=== PATIENT | female | born 1935 | race Caucasian/White ===

== ENCOUNTER → 2016-09-07 | Outpatient (CLI) | payer MEDICARE, OTHER | LOC: RAD 07:20 | PROVIDERS: ATTEND Physician Assistant Medical | DX: R10.13 Epigastric pain (principal); R11.2 Nausea with vomiting, unspecified; R79.89 Other specified abnormal findings of blood chemistry; K80.20 Calculus of gallbladder without cholecystitis without obstruction | CPT/HCPCS: 76700 ==

== ENCOUNTER → 2016-09-27 | Outpatient (CLI) | payer MEDICARE, OTHER ==
[2016-09-28 06:41] LABS: ALBUMIN 3.3 g/dL (3.4-5.0); ANION GAP 12.9 MEQ/L (3-15); CALCULATED IONIZED CALCIUM 4.1 mg/dL (3.8-4.6); MAGNESIUM* 2.1 mg/dL (1.6-2.3); TOTAL PROTEIN 6.5 g/dL (6.4-8.5)
== END ==
LOC: LAB 13:20
PROVIDERS: ATTEND Internal Medicine Hematology & Oncology
DX: C25.0 Malignant neoplasm of head of pancreas (principal)
CPT/HCPCS: 36415; 80053; 83615; 83735; 84100; 86301

== ENCOUNTER → 2016-09-28 | Outpatient (CLI) | payer MEDICARE, OTHER ==
[2016-09-28 15:27] LABS: MEAN CORPUSCULAR HEMOGLOBIN 29.3 PG (26.0-34.0); MEAN CORPUSCULAR HGB CONC 34.7 g/dL (31.0-37.0); MEAN CORPUSCULAR VOLUME 84 FL (80-100); MEAN PLATELET VOLUME 8.4 FL (6.0-9.5); PLATELET COUNT 412 10^3uL (150-450); WHITE BLOOD COUNT 10.75 10^3uL (4.0-11.0)
[2016-09-28 15:49] LABS: BAND NEUTROPHILS % 0 % (0-6); EOSINOPHILS % 3 % (0-4); LYMPHOCYTES # 4.1 #; MONOCYTES # 0.6 #; MONOCYTES % 6 % (3-11); RBC MORPH NORMAL (NORMAL); SEGMENTED NEUTROPHILS % 53 % (51-67); TOTAL CELLS COUNTED 100
== END ==
LOC: LAB 15:18
PROVIDERS: ATTEND Internal Medicine Hematology & Oncology
DX: C25.0 Malignant neoplasm of head of pancreas (principal)
CPT/HCPCS: 36415; 85007; 85027

== ENCOUNTER 2016-09-30 06:52 | Day surgery (SDC) | payer MEDICARE, OTHER ==
[~2016-09-30] VITALS: Ht 160 cm; Wt 63.2 kg
[2016-09-30] VITALS (7 sets, daily range): BP systolic 102–116; BP diastolic 48–64
[~2016-09-30 06:52] MED LIST: ACETAMINOPHEN 500 MG TAB (TYLENOL) PO SCH; LACTATED RINGERS 1,000 ML IV SCH; SODIUM CHLORIDE FLUSH 10 ML SYR IV PRN; SODIUM CHLORIDE FLUSH 3 ML SYR IV PRN; ceFAZolin 2,000 MG in SODIUM CHLORIDE VIAL (PF) 20 ML IV SCH
[2016-09-30] MEDS ORDERED: LIDOCAINE/EPINEPHRINE 1% 1:100,000 (XYLOCAINE) 30 ML VIAL INJ ONE (07:11)
[2016-09-30] MEDS ORDERED: ROPIVACAINE 0.2% 0 ML ONE (07:11)
[2016-09-30] MEDS ORDERED: SODIUM CHLORIDE FLUSH 20 ML ONE (07:11)
[2016-09-30] MEDS ORDERED: BUPIVACAINE/EPINEPHRINE 0.25%-1:200,000 (MARCAINE) 30 ML VIAL INJ ONE (07:11)
[2016-09-30] MEDS ORDERED: HEPARIN 5000 UNIT/0.5 ML SYRINGE ONE (07:16)
[2016-09-30 07:44] LABS: MEAN CORPUSCULAR HEMOGLOBIN 29.1 PG (26.0-34.0); MEAN CORPUSCULAR HGB CONC 34.5 g/dL (31.0-37.0); MEAN CORPUSCULAR VOLUME 85 FL (80-100); MEAN PLATELET VOLUME 8.3 FL (6.0-9.5); PLATELET COUNT 397 10^3uL (150-450); WHITE BLOOD COUNT 10.54 10^3uL (4.0-11.0)
[2016-09-30 07:46] LABS: BAND NEUTROPHILS % 0 % (0-6); EOSINOPHILS % 0 % (0-4); LYMPHOCYTES # 1.6 #; MONOCYTES # 1.6 #; MONOCYTES % 16 % (3-11); RBC MORPH NORMAL (NORMAL); SEGMENTED NEUTROPHILS % 69 % (51-67); TOTAL CELLS COUNTED 100
[2016-09-30 07:57] LABS: ALBUMIN 3.9 g/dL (3.4-5.0); ANION GAP 14.6 MEQ/L (3-15); CALCULATED IONIZED CALCIUM 3.8 mg/dL (3.8-4.6); TOTAL PROTEIN 7.3 g/dL (6.4-8.5)
[2016-09-30] MEDS ORDERED: PROPOFOL 20 ML IV ONE (08:05)
[2016-09-30] MEDS ORDERED: ceFAZolin 1000 MG (ANCEF) VIAL ONE (08:05)
[2016-09-30] MEDS ORDERED: WATER (STERILE) FOR INJECTION 10 ML VIAL ONE (08:05)
[2016-09-30] MEDS ORDERED: ALFENTANIL 500 MCG/ML (ALFENTA) 5 ML AMP IV ONE (08:05)
[2016-09-30] MEDS ORDERED: MIDAZOLAM 2 MG/2 ML (VERSED) VIAL ONE (08:05)
[2016-09-30] MEDS ORDERED: ONDANSETRON 2 MG/ML (Z0FRAN) 2 ML VIAL IV PRN (09:35)
== END 2016-09-30 12:05 | disposition home or self-care (01) ==
LOC: ASC 06:52
PROVIDERS: ATTEND Surgery
DX: C25.0 Malignant neoplasm of head of pancreas (principal)
CPT/HCPCS: 36415; 36561; 77001; 80053; 85007; 85027; 85610; A9270; C1788; J0690; J1644; J2250; J7120

== ENCOUNTER → 2016-10-04 | Outpatient (CLI) | payer MEDICARE, OTHER | LOC: LAB 10:03 | PROVIDERS: ATTEND Internal Medicine Hematology & Oncology | DX: Z53.9 Procedure and treatment not carried out, unspecified reason (principal) ==

== ENCOUNTER → 2016-10-11 | Outpatient (CLI) | payer MEDICARE, OTHER ==
[2016-10-11 09:42] LABS: MEAN CORPUSCULAR HEMOGLOBIN 29.4 PG (26.0-34.0); MEAN CORPUSCULAR HGB CONC 33.8 g/dL (31.0-37.0); MEAN CORPUSCULAR VOLUME 87 FL (80-100); MEAN PLATELET VOLUME 8.2 FL (6.0-9.5); PLATELET COUNT 108 10^3uL (150-450); WHITE BLOOD COUNT 4.75 10^3uL (4.0-11.0)
[2016-10-11 09:51] LABS: BAND NEUTROPHILS % 0 % (0-6); LYMPHOCYTES # 0.9 #; RBC MORPH NORMAL (NORMAL); SEGMENTED NEUTROPHILS % 80 % (51-67); TOTAL CELLS COUNTED 100
== END ==
LOC: LAB 09:31
PROVIDERS: ATTEND Internal Medicine Hematology & Oncology
DX: C25.0 Malignant neoplasm of head of pancreas (principal)
CPT/HCPCS: 36415; 85007; 85027

== ENCOUNTER 2016-10-18 09:49 | Outpatient (RCR) | payer MEDICARE, OTHER ==
[2016-10-18 09:51] LABS: MEAN CORPUSCULAR HEMOGLOBIN 28.9 PG (26.0-34.0); MEAN CORPUSCULAR HGB CONC 33.4 g/dL (31.0-37.0); MEAN CORPUSCULAR VOLUME 86 FL (80-100); PLATELET COUNT 109 10^3uL (150-450); WHITE BLOOD COUNT 4.49 10^3uL (4.0-11.0)
[2016-10-18 10:00] LABS: EOSINOPHILS % 0 % (0-4); LYMPHOCYTES # 1.1 #; MONOCYTES # 0.4 #; MONOCYTES % 9 % (3-11); RBC MORPH NORMAL (NORMAL)
[2016-10-18 10:01] LABS: BAND NEUTROPHILS % 2 % (0-6); SEGMENTED NEUTROPHILS % 63 % (51-67); TOTAL CELLS COUNTED 100
[2016-10-18 11:22] LABS: ALBUMIN 2.6 g/dL (3.4-5.0); ANION GAP 11.2 MEQ/L (3-15); CALCULATED IONIZED CALCIUM 4.3 mg/dL (3.8-4.6); TOTAL PROTEIN 5.2 g/dL (6.4-8.5)
[2016-11-17] MEDS ORDERED: PANT40TA3 PO (22:20)
[2016-11-17] MEDS ORDERED: METF-473 PO (22:20)
[2016-11-17] MEDS ORDERED: KCL20TCR PO (22:20)
[2016-11-17] MEDS ORDERED: FURO40TA4 PO (22:20)
[2016-11-22] MEDS ORDERED: MGX400T PO (09:36)
[2016-11-22] MEDS ORDERED: KCL20TCR PO (09:36)
[2016-11-30] MEDS ORDERED: DOCU-243 PO (18:39)
[2016-11-30] MEDS ORDERED: FURO80TA84 PO (18:39)
[2016-11-30] MEDS ORDERED: POTA-57 PO (18:42)
[2016-12-03] MEDS ORDERED: AC325T PO (13:12)
[2016-12-03] MEDS ORDERED: FRSM40T PO (13:12)
[2016-12-03] MEDS ORDERED: KCL20TCR PO (13:12)
[2016-12-03] MEDS ORDERED: CEFD300C PO (13:12)
== END 2016-12-08 19:20 | disposition home or self-care (01) ==
LOC: LAB 09:49
PROVIDERS: ATTEND Internal Medicine Hematology & Oncology
DX: C25.0 Malignant neoplasm of head of pancreas (principal)
CPT/HCPCS: 36415; 80053; 83615; 83735; 84100; 85007; 85027; 86301

== ENCOUNTER → 2016-10-19 | Outpatient (CLI) | payer MEDICARE, OTHER ==
[2016-10-19 10:00] LABS: ALBUMIN 2.8 g/dL (3.4-5.0); TOTAL PROTEIN 5.7 g/dL (6.4-8.5)
== END ==
LOC: LAB 09:42
PROVIDERS: ATTEND Internal Medicine
DX: K80.61 Calculus of gallbladder and bile duct with cholecystitis, unspecified, with obstruction (principal)
CPT/HCPCS: 36415; 80076

== ENCOUNTER → 2016-10-25 | Outpatient (REF) | payer MEDICARE, OTHER ==
[2016-10-25 13:52] LABS: MEAN CORPUSCULAR HEMOGLOBIN 29.2 PG (26.0-34.0); MEAN CORPUSCULAR HGB CONC 33.7 g/dL (31.0-37.0); MEAN CORPUSCULAR VOLUME 87 FL (80-100); MEAN PLATELET VOLUME 9.2 FL (6.0-9.5); PLATELET COUNT 154 10^3uL (150-450); WHITE BLOOD COUNT 7.01 10^3uL (4.0-11.0)
[2016-10-25 13:56] LABS: BAND NEUTROPHILS % 6 % (0-6); EOSINOPHILS % 1 % (0-4); MONOCYTES # 1.1 #; MONOCYTES % 15 % (3-11); RBC MORPH NORMAL (NORMAL); SEGMENTED NEUTROPHILS % 49 % (51-67); TOTAL CELLS COUNTED 100
[2016-10-25 14:02] LABS: ALBUMIN 2.2 g/dL (3.4-5.0); ANION GAP 9.5 MEQ/L (3-15); CALCULATED IONIZED CALCIUM 4.3 mg/dL (3.8-4.6); MAGNESIUM* 1.5 mg/dL (1.6-2.3); TOTAL PROTEIN 4.5 g/dL (6.4-8.5)
== END ==
LOC: LAB 13:35
PROVIDERS: ATTEND Internal Medicine Hematology & Oncology
DX: C25.0 Malignant neoplasm of head of pancreas (principal)
CPT/HCPCS: 80053; 83615; 83735; 84100; 85007; 85027

== ENCOUNTER → 2016-10-28 | Outpatient (REF) | payer MEDICARE, OTHER ==
[2016-10-28 10:05] LABS: ANION GAP 10.6 MEQ/L (3-15)
== END ==
LOC: LAB 08:54
PROVIDERS: ATTEND Internal Medicine Hematology & Oncology
DX: R60.0 Localized edema (principal)
CPT/HCPCS: 80048

== ENCOUNTER → 2016-11-01 | Outpatient (REF) | payer MEDICARE, OTHER ==
[2016-11-01 09:01] LABS: MEAN CORPUSCULAR HEMOGLOBIN 28.8 PG (26.0-34.0); MEAN CORPUSCULAR VOLUME 87 FL (80-100); MEAN PLATELET VOLUME 8.9 FL (6.0-9.5); PLATELET COUNT 477 10^3uL (150-450); WHITE BLOOD COUNT 11.97 10^3uL (4.0-11.0)
[2016-11-01 09:38] LABS: BAND NEUTROPHILS % 7 % (0-6); EOSINOPHILS % 1 % (0-4); LYMPHOCYTES # 2.9 #; MONOCYTES # 1.4 #; MONOCYTES % 13 % (3-11); SEGMENTED NEUTROPHILS % 51 % (51-67); TOTAL CELLS COUNTED 100
[2016-11-01 09:42] LABS: RBC MORPH NORMAL (NORMAL)
== END ==
LOC: LAB 08:21
PROVIDERS: ATTEND Internal Medicine Hematology & Oncology
DX: C25.0 Malignant neoplasm of head of pancreas (principal)
CPT/HCPCS: 85007; 85027

== ENCOUNTER → 2016-11-08 | Outpatient (REF) | payer MEDICARE, OTHER ==
[2016-11-08 08:51] LABS: MEAN CORPUSCULAR HEMOGLOBIN 28.7 PG (26.0-34.0); MEAN CORPUSCULAR HGB CONC 32.7 g/dL (31.0-37.0); MEAN CORPUSCULAR VOLUME 88 FL (80-100); MEAN PLATELET VOLUME 8.6 FL (6.0-9.5); PLATELET COUNT 572 10^3uL (150-450); WHITE BLOOD COUNT 12.84 10^3uL (4.0-11.0)
[2016-11-08 09:12] LABS: BAND NEUTROPHILS % 0 % (0-6); EOSINOPHILS % 3 % (0-4); LYMPHOCYTES # 2.1 #; MONOCYTES # 1.2 #; MONOCYTES % 10 % (3-11); RBC MORPH NORMAL (NORMAL); SEGMENTED NEUTROPHILS % 71 % (51-67); TOTAL CELLS COUNTED 100
== END ==
LOC: LAB 08:35
PROVIDERS: ATTEND Internal Medicine Hematology & Oncology
DX: C25.0 Malignant neoplasm of head of pancreas (principal)
CPT/HCPCS: 85007; 85027

== ENCOUNTER → 2016-11-09 | Outpatient (REF) | payer MEDICARE, OTHER ==
[2016-11-09 11:45] LABS: ALBUMIN 2.4 g/dL (3.4-5.0); CALCULATED IONIZED CALCIUM 4.1 mg/dL (3.8-4.6); TOTAL PROTEIN 5.1 g/dL (6.4-8.5)
== END ==
LOC: LAB 11:12
PROVIDERS: ATTEND Internal Medicine Hematology & Oncology
DX: C25.4 Malignant neoplasm of endocrine pancreas (principal); C25.0 Malignant neoplasm of head of pancreas
CPT/HCPCS: 80053

== ENCOUNTER → 2016-11-15 | Outpatient (REF) | payer MEDICARE, OTHER ==
[~2016-11-15] MED LIST changes: -ACETAMINOPHEN 500 MG TAB (TYLENOL) PO SCH; +FURO40TA4 PO; +KCL20TCR PO; -LACTATED RINGERS 1,000 ML IV SCH; +METF-473 PO; +PANT40TA3 PO; -SODIUM CHLORIDE FLUSH 10 ML SYR IV PRN; -SODIUM CHLORIDE FLUSH 3 ML SYR IV PRN; -ceFAZolin 2,000 MG in SODIUM CHLORIDE VIAL (PF) 20 ML IV SCH
[2016-11-15 08:48] LABS: MEAN CORPUSCULAR HEMOGLOBIN 28.7 PG (26.0-34.0); MEAN CORPUSCULAR HGB CONC 32.1 g/dL (31.0-37.0); MEAN CORPUSCULAR VOLUME 89 FL (80-100); PLATELET COUNT 214 10^3uL (150-450); WHITE BLOOD COUNT 10.21 10^3uL (4.0-11.0)
[2016-11-15 09:30] LABS: BAND NEUTROPHILS % 0 % (0-6); EOSINOPHILS % 1 % (0-4); LYMPHOCYTES # 2.5 #; MONOCYTES # 1.3 #; MONOCYTES % 13 % (3-11); RBC MORPH NORMAL (NORMAL); SEGMENTED NEUTROPHILS % 62 % (51-67); TOTAL CELLS COUNTED 100
== END ==
LOC: LAB 08:29
PROVIDERS: ATTEND Internal Medicine Hematology & Oncology
DX: C25.0 Malignant neoplasm of head of pancreas (principal)
CPT/HCPCS: 85007; 85027; 86301

== ENCOUNTER 2016-11-17 21:29 | Inpatient (IN) | payer MEDICARE, OTHER ==
[~2016-11-17] VITALS: Ht 160 cm; Wt 66.0 kg
[2016-11-17] MEDS ORDERED: ACETAMINOPHEN 500 MG TAB (TYLENOL) PO ONE (21:55)
[2016-11-17] MEDS ORDERED: ACETAMINOPHEN 500 MG TAB (TYLENOL) ONE (22:02)
[2016-11-17] MEDS ORDERED: PANT40TA3 PO (22:20)
[2016-11-17] MEDS ORDERED: FURO40TA4 PO (22:20)
[2016-11-17] MEDS ORDERED: KCL20TCR PO (22:20)
[2016-11-17] MEDS ORDERED: METF-473 PO (22:20)
[2016-11-17 22:37] LABS: MEAN CORPUSCULAR HEMOGLOBIN 28.8 PG (26.0-34.0); MEAN CORPUSCULAR HGB CONC 32.5 g/dL (31.0-37.0); MEAN CORPUSCULAR VOLUME 89 FL (80-100); WHITE BLOOD COUNT 15.27 10^3uL (4.0-11.0)
[2016-11-17 22:38] LABS: MEAN PLATELET VOLUME 9.5 FL (6.0-9.5); PLATELET COUNT 186 10^3uL (150-450)
[2016-11-17 22:44] LABS: BAND NEUTROPHILS % 6 % (0-6); LYMPHOCYTES # 0.2 #; RBC MORPH NORMAL (NORMAL); SEGMENTED NEUTROPHILS % 93 % (51-67); TOTAL CELLS COUNTED 100
[2016-11-17 22:47] LABS: ALBUMIN 2.8 g/dL (3.4-5.0); CALCULATED IONIZED CALCIUM 3.7 mg/dL (3.8-4.6); TOTAL PROTEIN 6.1 g/dL (6.4-8.5)
[2016-11-17 22:51] LABS: ANION GAP 10.1 MEQ/L (3-15)
[2016-11-17 23:04] LABS: BILIRUBIN,URINE Negative (Negative); CLARITY,URINE Clear; COLOR,URINE Yellow; GLUCOSE, URINE (UA) Negative (Negative); LEUKOCYTE ESTERASE ,URINE Negative (Negative)
[2016-11-17 23:10] LABS: URINE CENTRIFUGED VOLUME 12 mL
[2016-11-17] MEDS ORDERED: LEVOFLOXACIN 500 MG/100 ML IV 100 ML IV ONE (23:35)
[2016-11-17] MEDS ORDERED: ACETAMINOPHEN 325 MG TAB (TYLENOL) PO PRN (23:50)
[2016-11-17] MEDS ORDERED: DEXTROSE 50% 25 GM/50 ML SYRINGE IV PRN (23:50)
[2016-11-17] MEDS ORDERED: HYDROmorphone 1 MG/ML (DILAUDID) SYRINGE IV PRN (23:50)
[2016-11-17] MEDS ORDERED: GLUCAGON EMERGENCY 1 MG/KIT IM PRN (23:50)
[2016-11-17] MEDS ORDERED: DEXTROSE ORAL GEL (GLUTOSE 40%) 15 GM TUBE PO PRN (23:50)
[2016-11-17] MEDS ORDERED: ONDANSETRON 2 MG/ML (Z0FRAN) 2 ML VIAL IV PRN (23:50)
[2016-11-18] VITALS (17 sets, daily range): BP systolic 90–121; BP diastolic 32–56
--- NOTE | 2016-11-18 00:15 | NUR ---
Pt arrives to 302 via cart from ED. Ambulates with assist to weight chair and bed. Denies pain. Resp even and non labored on RA. 2+ lower extremity edema. See admission assessment for further details.
--- NOTE | 2016-11-18 00:45 | NUR ---
Dr Dorado assesses pt via remote monitoring.
--- NOTE | 2016-11-18 01:11 | History and Physical (E) ---
History & Physical Chief complaint: Chills History of present illness: This is a 81-year-old female that lives independently at home. The patient was in her normal state of health until diagnosed with pancreatic cancer in September of this year. The patient underwent a stent placement presumably of her common bile duct 3 weeks ago. The patient was doing well. Had completed her first round of chemotherapy. The patient had onset of weakness. Increasing somnolence. Patient would fall asleep easily. Subsequently patient had a significant episodes or Reiters. Patient was evaluated by a home health provider. And referred to the emergency department for further assessment. In the emergency department the patients urine demonstrates evidence of infection. Other sources of infection were not identified. The patient is to be admitted for IV fluids and IV antibiotics. Past medical history: Pancreatic cancer, hypertension, prediabetes, polio Past surgical history: IV Port placement, right total hip, right shoulder muscle surgery to prevent chronic dislocation what her polio was activated, elbow surgery, hand surgery Medications: Lasix, Protonix, potassium, metformin Allergies: See medication reconciliation Social history: , lives independently, retired from the [employer], no tobacco, no alcohol Family history: Mother and father with dyslipidemia Review of systems: No headache, no change in vision, no ear pain, no sores in the mouth, no dysphagia, no neck pain, no chest pain, no heart palpitations, no cough, no shortness of breath, no abdominal pain, no nausea or vomiting, patient is dealing with constipation, no urine symptoms, no focal neurological complaints, has persistent edema to legs bilaterally, a 10 point review of systems is otherwise negative except described above Physical examination: Vital signs: Temperature 101.5, pulse 120, blood pressure 80/40, respiratory rate 16 Well-developed well-nourished white female alert and oriented to person place and time and situation mild distress Sclera is not icteric Neck is supple with easy range of motion Heart is regular rate and rhythm no murmur Lungs are diminished without wheezes or rhonchi Abdomen is soft per nursing personnel no evidence of tenderness Extremities significant edema up to the knees bilaterally Neurologically no focal deficits Lab: White count 15.3, hemoglobin 8.1, platelet counts 186,000, 6% bands, urinalysis with mild infection, sodium 129, potassium 4.3, serum bicarbonate 25, BNP 20, creatinine 0.8, glucose is 143, lactic acid 3.1, total bili 1.3 Chest x-ray no acute process Impression/plan 1. Urinary tract infection acute present on admission: Levaquin provided in the emergency department setting, will change to Rocephin, cultures pending, adjust as indicated, IV fluids, 2. Severe sepsis acute present on admission: At this time lactic acid is elevated. Patient has received 30 cc/kg IV fluids, we will cycle lactic acid overnight, repeat sepsis markers in the morning, it is worth noting the patient s blood pressure is low, patient reports that she normally runs low, I will not consider this patients septic shock at this time 3. Pancreatic carcinoma acute present on admission: Patients actively being treated. See oncology notes. Has completed her first round of chemotherapy. Has a stent I presume of the common bile duct. There is no evidence of shock to jaundice at this time. There is no evidence to support a sending cholangitis. 4. Hyponatremia acute present on admission: Secondary to hypovolemia. Normal saline, repeat labs in the morning 5. Normocytic anemia chronic present on admission: At this time related to chemotherapy, no transfusion indicated at this time 6. Type 2 diabetes mellitus chronic present on admission: Patient advocates that she is a prediabetic. Regardless patients sugars elevated. Well utilize a correctional plan. 7. DVT prophylaxis: SCD 8. Gastric prophylaxis: Proton pump inhibitor Allergies/Home Medications Allergies: Coded Allergies: No Known Drug Allergies (Unverified , 10/01/14) Reported Home Medications Scheduled Furosemide (Furosemide) 40 MG PO BID (Reported) Metformin HCl (Metformin HCl ER) 500 MG PO DAILY (Reported) Pantoprazole Sod (Protonix Tab) 40 MG PO DAILY (Reported) Potassium Chloride (Klor-Con M20) 20 MEQ PO DAILY (Reported) Copies to: End of Report . RICHAR DICKERSON MD November 18, 2016 01:11
[2016-11-18] MEDS ORDERED: cefTRIAXone 1 GM (ROCEPHIN) VIAL ONE (04:31)
[2016-11-18] MEDS ORDERED: SODIUM CHLORIDE 50 ML IV ONE (04:31)
[2016-11-18] MEDS ORDERED: cefTRIAXone SODIUM 1,000 MG in SODIUM CHLORIDE 50 ML IV SCH (05:00)
[2016-11-18] MEDS: INSULIN LISPRO 1 UNIT/0.01 ML (HUMALOG) DOSE SC SCH ×4 (06:13→21:00)
[2016-11-18] MEDS: PANTOPRAZOLE 40 MG (PROTONIX) TAB PO SCH (06:15)
--- NOTE | 2016-11-18 06:30 | NUR ---
Pt rests in short intervals. Denies pain. Resp even and non labored on RA. IVF infusing w/o difficulty. Pt up to bathroom with staff assist x1 and cane. No needs at this time.
[2016-11-18 07:19] LABS: MEAN CORPUSCULAR HEMOGLOBIN 29.2 PG (26.0-34.0); MEAN CORPUSCULAR HGB CONC 32.9 g/dL (31.0-37.0); MEAN CORPUSCULAR VOLUME 89 FL (80-100); MEAN PLATELET VOLUME 9.1 FL (6.0-9.5); PLATELET COUNT 156 10^3uL (150-450); WHITE BLOOD COUNT 15.56 10^3uL (4.0-11.0)
[2016-11-18 07:28] LABS: ALBUMIN 2.2 g/dL (3.4-5.0); ANION GAP 10.2 MEQ/L (3-15); CALCULATED IONIZED CALCIUM 3.6 mg/dL (3.8-4.6)
[2016-11-18] MEDS ORDERED: SODIUM CHLORIDE 250 ML IV ONE (07:30)
--- NOTE | 2016-11-18 08:02 | Diagnostic Imaging Report ---
INDICATION: Weakness. EXAM: Portable chest at 7:39 PM FINDINGS: A right IJ Port-A-Cath tip projects over the SVC. The heart size and pulmonary vascularity are normal. The lungs are clear. There are no effusions or pneumothoraces. IMPRESSION: No acute abnormalities in the chest. Dictated by: Dictated on workstation # [id number]
[2016-11-18 08:10] LABS: ANISOCYTOSIS SLIGHT; BAND NEUTROPHILS % 0 % (0-6); EOSINOPHILS % 0 % (0-4); HYPOCHROMASIA MODERATE; LYMPHOCYTES # 1.1 #; MONOCYTES % 0 % (3-11); RBC MORPH SEE REFERENCE (NORMAL); SEGMENTED NEUTROPHILS % 93 % (51-67); TOTAL CELLS COUNTED 100
--- NOTE | 2016-11-18 09:05 | NUR ---
NUTRITION ASSESSMENT Level 1 Patient: Erin Jenkins Age/Sex: 81/F Date Screened: 11-18-16 Weight: 148.2#/67.4 kg Height: 63 inches Primary Diagnosis: UTI, severe sepsis Diet Order: small diabetic Relevant labs: sodium 132, glucose 103, AST 79 Food allergies: N Nutrition Assessment Criteria Age over 80: 4 points Body Mass Index (BMI) under 19: N Admission Screening Indicates Risk? 3 points Moderate/High Risk Diagnosis: 3 points TPN or PPN: N NPO or clear liquid diet: N Serum Glucose <70 or >180: N Hgb A1c >6.7: N/A Total: 10 points Risk Screen: __ Patient at low nutritional risk based on available data; reevaluate in 5-7 days __ Patient at moderate nutritional risk based on available data; reevaluate in 3-5 days _X_ Patient at high nutritional risk; complete Nutrition Assessment within 48 hours of admission.
[2016-11-18] MEDS ORDERED: SODIUM CHLORIDE 250 ML ONE (09:28)
--- NOTE | 2016-11-18 10:20 | NUR ---
Stool sample sent to lab.
--- NOTE | 2016-11-18 10:31 | NUR ---
NUTRITION ASSESSMENT Level II Patient: Erin Jenkins Age/Sex: 81/F Date Assessed: 11-18-16 ASSESSMENT Pertinent History: Patient admitted with UTI and severe sepsis, and screened at high nutritional risk secondary to elderly age and diagnosis. PMHx includes pancreatic cancer (dx September 2016), HTN, prediabetes and polio. She lives alone at home. She has completed her first round of chemo for pancreatic cancer. Weight history includes 139# in September,. Meds/Nutrition: Humalog, Protonix, NS Weight: 148.2#/67.4 kg Height: 63 inches Body Mass Index (BMI): 26.3 [place] Body Weight : 115#/52.2 kg % IBW: 128% GASTROINTESTINAL Appetite: stated fair on admission, no intake reported yet Diet Order: small diabetic Unintentional loss of >10 lbs. in 3 months: N Difficult to chew/swallow: N Diabetes: N Relevant Labs: sodium 132, glucose 103, AST 79 Calculations for Nutritional Assessment Estimated calorie needs: 22-25 kcals/kg = 1,475-1,675 kcals Estimated protein needs: 1.0-1.3 g/kg = 67-87 g./day DIAGNOSIS 1. Nutrition Diagnosis: Potential for inadequate intake related to acute illness and catabolic disease state (cancer) as evidenced by recently dx. pancreatic cancer with sepsis/UTI. NUTRITIONAL INTERVENTION Goal: Patient will receive adequate nutrition to meet her needs. Plan: Will provide small diet as ordered and monitor intake for adequacy. Protein shakes may be helpful if her appetite is poor; will encourage Glucerna if unable to take adequate p.o. nutrition. Will follow closely. MONITORING & EVALUATION _X_ Monitor patients menu selections _X_ Monitor patients food intake per nursing notes __ Monitor NPO/clear liquid days _X_ Monitor lab values __ Monitor I&O __ Other
--- NOTE | 2016-11-18 10:33 | NUR ---
PRBC infusion begins at this time. Will continue to monitor
--- NOTE | 2016-11-18 11:36 | NUR ---
PRBC infusion increased from 125cc/hr to 175cc/hr.
--- NOTE | 2016-11-18 12:33 | NUR ---
PRBC infusion complete at this time
[2016-11-18] MEDS ORDERED: DOCUSATE SODIUM 100 MG (COLACE) CAP PO PRN (12:45)
[2016-11-18] MEDS ORDERED: MAGNESIUM HYDROXIDE 80MG/ML (MILK OF MAGNESIA) 30 ML UDC PO PRN (12:45)
[2016-11-18] MEDS ORDERED: POLYETHYLENE GLYCOL 17 GM (MIRALAX) PACKET PO PRN (12:45)
[2016-11-18] MEDS ORDERED: CALCIUM CARBONATE CHEWABLE 300 MG (TUMS) TABLET PO PRN (12:45)
[2016-11-18] MEDS ORDERED: PROMETHAZINE 25 MG/ML (PHENERGAN) 1 ML VIAL IM PRN (12:45)
--- NOTE | 2016-11-18 13:11 | Progress Note (E) ---
Progress Note SUBJECTIVE Admitted after midnight. 81 year old with pancreatic cancer, diagnosed September 2016. had a biliary stent (?) 3 weeks prior to this admit. Has had first round of chemi. Admitted for concerns of sepsis. UTI present on admit. Given ceftriaxone. Since admit, has remained afebrile. Hgb this AM was quite low at 6.9 so transfusion was ordered. Na had been low on admit at 129, improved to 132. Ca low at 6.9 but corrects to 8.3. On exam, awake, interactive, oriented. Feels better, she says. No longer having rigors. Prior to admit she wasn't having UTI symptoms and has not had problems with UTI in the past. Questions answered... updated her on findings, plan of care. OBJECTIVE Vital Signs Date Time Temp Pulse Resp B/P Pulse Ox O2 Delivery O2 Flow Rate FiO2 11/18/16 12:30 98.6 89 16 92 Room air 11/18/16 11:14 96/40 I & O 11/17/16 11/18/16 Cumulative From/Thru 19:00 07:00 11/17/16 21:45 - 11/18/16 06:10 Intake Total 2549 ml 2549 ml Balance 2549 ml 2549 ml GEN: Awake, interactive, oriented, NAD HEENT: EOMI, clear sclerae, mildly dry oral mucosa. CV: Regular with III/ systolic flow murmur at LSB. PULM: Faint and intermittent basilar rales bilaterally. ABD: Soft, NT/ND with normal bowel sounds. EXTR: 2+ BLE and pedal edema. War, dry, well-perfused. INTEG: Pallor. Age related changes. NEURO: No focal motor neuro deficit. Gait not assessed. Lab-Past 14 Days, 35 Results 11/17/16 22:00: Absolute Band Neutrophils 0.9, Alanine Aminotransferase (ALT/SGPT) 59, Albumin 2.8L, Albumin/Globulin Ratio 0.848L, Alkaline Phosphatase 119, Anion Gap 10.1, Aspartate Amino Transf (AST/SGOT) 96H, BUN/Creatinine Ratio 24H, Band Neutrophils % 6, Blood Morphology Comment Normal, Blood Urea Nitrogen 20H, Calcium Level 7.7L, Calcium/Ionized Calcium Ratio 3.7L, Calculated Osmolality 255L, Carbon Dioxide Level 25, Chloride Level 94L, Creatinine 0.84, Differential Total Cells Counted 100, Estimat Glomerular Filtration Rate 78.9, Estimated GFR (Non- 65.2, Glucose Level 143#H, Hematocrit 24.90L , Hemoglobin 8.1L, Lactic Acid Level 3.1H, Lymphocytes # 0.2, Lymphocytes % ( Manual) 1L, Mean Corpuscular Hemoglobin 28.8, Mean Corpuscular Hemoglobin Concent 32.5, Mean Corpuscular Volume 89, Mean Platelet Volume 9.5, Neutrophils # 14.2, Platelet Count 186, Potassium Level 4.3, Red Blood Count 2.81L, Red Cell Distribution Width 15.3, Segmented Neutrophils % 93H, Sodium Level 129L, Total Bilirubin 1.3#H, Total Protein 6.1L, White Blood Count 15.27H 11/17/16 22:55: Urine Bacteria 3+H, Urine Bilirubin Negative, Urine Blood Trace-intactH, Urine Clarity Clear, Urine Collection Type Clean catch, Urine Color Yellow, Urine Glucose (UA) Negative, Urine Ketones Negative, Urine Leukocyte Esterase Negative , Urine Microscopic RBC 2-5, Urine Nitrite PositiveH, Urine Protein 1+H, Urine Renal Epithelial Cells 5-10, Urine Specific [place] 1.010, Urine Squamous Epithelial Cells 20-50, Urine Urobilinogen 1.0, Urine WBC 2-5, Urine pH 7.0, Volume Urine Centrifuged 12 ml 11/18/16 04:00: Lactic Acid Level 1.2 11/18/16 07:00: Absolute Band Neutrophils 0.0, Alanine Aminotransferase (ALT/SGPT) 53, Albumin 2.2#L, Albumin/Globulin Ratio 0.785L, Alkaline Phosphatase 74, Anion Gap 10.2, Aspartate Amino Transf (AST/SGOT) 79H, BUN/Creatinine Ratio 26H, Band Neutrophils % 0, Blood Morphology Comment See reference, Blood Urea Nitrogen 18 , Calcium Level 6.9*L, Calcium/Ionized Calcium Ratio 3.6L, Calculated Osmolality 257L, Carbon Dioxide Level 25, Chloride Level 101, Creatinine 0.69, Differential Total Cells Counted 100, Estimat Glomerular Filtration Rate 99.1, Estimated GFR (Non- 81.9, Glucose Level 103#, Hematocrit 21.00L , Hemoglobin 6.9*L, Lactic Acid Level 1.0, Lymphocytes # 1.1, Lymphocytes % ( Manual) 7L, Mean Corpuscular Hemoglobin 29.2, Mean Corpuscular Hemoglobin Concent 32.9, Mean Corpuscular Volume 89, Mean Platelet Volume 9.1, Neutrophils # 14.5, Platelet Count 156, Potassium Level 3.9, Red Blood Count 2.36L, Red Cell Distribution Width 15.4, Segmented Neutrophils % 93H, Sodium Level 132L, Total Bilirubin 0.7, Total Protein 5.0L, White Blood Count 15.56H, Anisocytosis Slight, Basophils # (Auto) , Basophils # (Manual) 0.0, Basophils % (Manual) 0, Basophils (%) (Auto) , Eosinophils # 0.0, Eosinophils # (Auto) , Eosinophils % ( Manual) 0, Eosinophils (%) (Auto) , Hypochromasia Moderate, Lipase 27, Lymphocytes # (Auto) , Lymphocytes (%) (Auto) , Metamyelocytes % 0, Monocytes # 0.0, Monocytes # (Auto) , Monocytes % (Manual) 0L, Monocytes (%) (Auto) , Neutrophils # (Auto) , Neutrophils (%) (Auto) 11/18/16 10:20: Stool Occult Blood Negative MICRO 11/18 Urine culture PENDING 11/18 Blood culture PENDING 11/17/16 Chest Xray Portable 1 View A/P INDICATION: Weakness. EXAM: Portable chest at 7:39 PM FINDINGS: A right IJ Port-A-Cath tip projects over the SVC. The heart size and pulmonary vascularity are normal. The lungs are clear. There are no effusions or pneumothoraces. IMPRESSION: No acute abnormalities in the chest. ASSESSMENT Erin Jenkins is a 81 year old female admitted from ED 11/18 with SIRS/ sepsis attributed to UTI. She has pancreatic cancer and is undergoing chemotherapy. She had anemia on admit with Hgb landy 6.9. She has other chronic problems. * SIRS/sepsis: attributed to UTI. * UTI: Cultures pending. Ceftriaxone. * Normocytic Anemia: Stool negative for occult blood. Hgb landy 6.9. Transfused 1 unit PRBC 11/18. Monitor and transfuse for Hgb < 8. * Hyponatremia: Na 129 on admit, improved to 132. Monitor trend. * Pain: Hydromorphone, acetaminophen. * Hypotension: Mild. Treat sepsis. IVF. Monitor trend. * F/E/N: Diabetic diet. Port. IVF. I&O, daily weight. * Prophylaxis: Enoxaparin * Code Status: Full * Dispo: Inpatient, expecting 3 day stay. CHRONIC ISSUES * Diabetes Mellitus Type II: Metformin, sliding scale. * GERD: Pantoprazole * Edema; Hold furosemide, potassium. * Pancreatic Cancer: Obtain records from oncologist. RAMESH HURTADO MD November 18, 2016 12:59
[2016-11-18] MEDS ORDERED: PROMETHAZINE HCL INJ 12.5 MG in SODIUM CHLORIDE 25 ML IV PRN (13:35)
--- NOTE | 2016-11-18 14:30 | NUR ---
TG shapes are placed to BLE. Also a TG shape is placed to Left arm for edema. Dr. Reyes notified.
--- NOTE | 2016-11-18 15:34 | NUR ---
MULTIDISCIPLINARY MTG/DR. HURTADO: Pt. admitted with SIRS/Sepsis due to UTI. Pt. has a permanent biliary stent placed; will monitor for signs of infection. Pt. is already feeling better. Pt. was anemic and received one unit of blood. Pt. expected to be here for at least three days and would benefit from skilled care although Pt. may be reluctant due to living at home and receiving home health services through [facility].
[2016-11-18] MEDS: METFORMIN 500 MG PO SCH (18:05)
--- NOTE | 2016-11-18 18:10 | NUR ---
Pt resting in bed, awaiting supper meal. Denies needs at this time. Family was here this afternoon and Dr. Reyes updated them on plan of care. IV SL this afternoon per orders. Call light within reach.
--- NOTE | 2016-11-18 20:00 | NUR ---
Repositioned in bed. Is alert and oriented. TG shapes remain on bilateral lower extremities, and left arm due to edema. Denies any discomforts at this time. SL intact without complications noted at site. Accu Check 170 mg/dl. Denies pain or nausea. No concerns at present time. Call light within reach.
[2016-11-18 21:32] LABS: IRON 52 ug/dL (50-170); UNBOUND IRON CONTENT 116 ug/dl (126-382)
--- NOTE | 2016-11-19 | NUR ---
Resting quietly in bed. Respirations even and non-labored.
[2016-11-19 04:00] VITALS: BP 138/51
[2016-11-19] MEDS ORDERED: cefTRIAXone 1 GM (ROCEPHIN) VIAL ONE (04:20)
[2016-11-19] MEDS ORDERED: SODIUM CHLORIDE 50 ML IV ONE (04:20)
[2016-11-19] MEDS: cefTRIAXone SODIUM 1,000 MG in SODIUM CHLORIDE 50 ML IV SCH (05:04)
[2016-11-19 05:47] LABS: BASOPHILS % (AUTO) 0 % (0-2); EOSINOPHILS # (AUTO) 0.5 10^3uL; EOSINOPHILS % (AUTO) 4 % (0-4); MEAN CORPUSCULAR HEMOGLOBIN 29.1 PG (26.0-34.0); MEAN CORPUSCULAR HGB CONC 33.2 g/dL (31.0-37.0); MEAN CORPUSCULAR VOLUME 88 FL (80-100); MEAN PLATELET VOLUME 9.5 FL (6.0-9.5); MONOCYTES # (AUTO) 0.1 X10^3; MONOCYTES % (AUTO) 1 % (3-11); NEUTROPHILS # (AUTO) 9.9 X10^3; NEUTROPHILS % (AUTO) 84 % (51-67); PLATELET COUNT 201 10^3uL (150-450); WHITE BLOOD COUNT 11.84 10^3uL (4.0-11.0)
[2016-11-19] MEDS: INSULIN LISPRO 1 UNIT/0.01 ML (HUMALOG) DOSE SC SCH ×4 (06:05→21:00)
[2016-11-19] MEDS: PANTOPRAZOLE 40 MG (PROTONIX) TAB PO SCH (06:14)
[2016-11-19 06:18] LABS: ALBUMIN 2.2 g/dL (3.4-5.0); ANION GAP 10.2 MEQ/L (3-15); CALCULATED IONIZED CALCIUM 3.8 mg/dL (3.8-4.6); MAGNESIUM* 1.8 mg/dL (1.6-2.3); TOTAL PROTEIN 5.3 g/dL (6.4-8.5)
--- NOTE | 2016-11-19 06:47 | NUR ---
Rested well tonight. Up to bathroom with stand by assist. Ambulates slowly. Denies pain or nausea. Wears c-pap at night without difficulty. SL patent without complications to site. No discomforts voiced. Call light within reach.
--- NOTE | 2016-11-19 07:25 | NUR ---
Patient awake in bed upon shift assessment. Alert and oriented X3. Denies pain, nausea, chills, SOA, or other distress. HR RRR. Lung sounds CTAB. Left arm remains edematous. BLE with 1+ pitting edema. Ambulates into bathroom with standby assist and cane, steady gate. Updated on plan of care for shift including antibiotic therapy. Call light in reach.
[2016-11-19 07:38] VITALS: BP 130/61
--- NOTE | 2016-11-19 08:57 | Progress Note (E) ---
Progress Note SUBJECTIVE BP improved. Remained afebrile. Has had a BM. UTI likely source of infection. No evidence to suggest cholangitis. (She has a biliary stent. On exam, awake, resting in bed. No distress. Updated on findings, plan of care. Agreeable to working with PT. OBJECTIVE Vital Signs Date Time Temp Pulse Resp B/P Pulse Ox O2 Delivery O2 Flow Rate FiO2 11/19/16 07:38 97.5 110 16 130/61 92 Room air I & O 11/18/16 11/19/16 Cumulative From/Thru 19:00 07:00 11/17/16 21:45 - 11/19/16 06:00 Intake Total 927 ml 1000 ml 4476 ml Output Total 400 ml 450 ml 850 ml Balance 527 ml 550 ml 3626 ml GEN: Awake, interactive, oriented, NAD HEENT: EOMI, clear sclerae, mildly dry oral mucosa. CV: Regular with III/ systolic flow murmur at LSB. PULM: Faint and intermittent basilar rales bilaterally. ABD: Soft, NT/ND with normal bowel sounds. EXTR: 2+ BLE and pedal edema. Warm, dry, well-perfused. INTEG: Pallor. Age related changes. NEURO: No focal motor neuro deficit. Lab-Past 14 Days, 35 Results 11/17/16 22:00: Absolute Band Neutrophils 0.9, Alanine Aminotransferase (ALT/SGPT) 59, Albumin 2.8L, Albumin/Globulin Ratio 0.848L, Alkaline Phosphatase 119, Anion Gap 10.1, Aspartate Amino Transf (AST/SGOT) 96H, BUN/Creatinine Ratio 24H, Band Neutrophils % 6, Blood Morphology Comment Normal, Blood Urea Nitrogen 20H, Calcium Level 7.7L, Calcium/Ionized Calcium Ratio 3.7L, Calculated Osmolality 255L, Carbon Dioxide Level 25, Chloride Level 94L, Creatinine 0.84, Differential Total Cells Counted 100, Estimat Glomerular Filtration Rate 78.9, Estimated GFR (Non- 65.2, Ferritin 1556H, Glucose Level 143#H, Hematocrit 24.90L, Hemoglobin 8.1L, Iron (send out) 52, Lactic Acid Level 3.1H, Lymphocytes # 0.2, Lymphocytes % (Manual) 1L, Mean Corpuscular Hemoglobin 28.8, Mean Corpuscular Hemoglobin Concent 32.5, Mean Corpuscular Volume 89, Mean Platelet Volume 9.5, Neutrophils # 14.2, Platelet Count 186, Potassium Level 4.3 , Red Blood Count 2.81L, Red Cell Distribution Width 15.3, Segmented Neutrophils % 93H, Sodium Level 129L, Total Bilirubin 1.3#H, Total Iron Binding Capacity 168L, Total Protein 6.1L, Transferrin % Saturation 31, White Blood Count 15.27H 11/17/16 22:55: Urine Bacteria 3+H, Urine Bilirubin Negative, Urine Blood Trace-intactH, Urine Clarity Clear, Urine Collection Type Clean catch, Urine Color Yellow, Urine Glucose (UA) Negative, Urine Ketones Negative, Urine Leukocyte Esterase Negative , Urine Microscopic RBC 2-5, Urine Nitrite PositiveH, Urine Protein 1+H, Urine Renal Epithelial Cells 5-10, Urine Specific [place] 1.010, Urine Squamous Epithelial Cells 20-50, Urine Urobilinogen 1.0, Urine WBC 2-5, Urine pH 7.0, Volume Urine Centrifuged 12 ml 11/18/16 04:00: Lactic Acid Level 1.2 11/18/16 07:00: Absolute Band Neutrophils 0.0, Alanine Aminotransferase (ALT/SGPT) 53, Albumin 2.2#L, Albumin/Globulin Ratio 0.785L, Alkaline Phosphatase 74, Anion Gap 10.2, Aspartate Amino Transf (AST/SGOT) 79H, BUN/Creatinine Ratio 26H, Band Neutrophils % 0, Blood Morphology Comment See reference, Blood Urea Nitrogen 18 , Calcium Level 6.9*L, Calcium/Ionized Calcium Ratio 3.6L, Calculated Osmolality 257L, Carbon Dioxide Level 25, Chloride Level 101, Creatinine 0.69, Differential Total Cells Counted 100, Estimat Glomerular Filtration Rate 99.1, Estimated GFR (Non- 81.9, Glucose Level 103#, Hematocrit 21.00L , Hemoglobin 6.9*L, Lactic Acid Level 1.0, Lymphocytes # 1.1, Lymphocytes % ( Manual) 7L, Mean Corpuscular Hemoglobin 29.2, Mean Corpuscular Hemoglobin Concent 32.9, Mean Corpuscular Volume 89, Mean Platelet Volume 9.1, Neutrophils # 14.5, Platelet Count 156, Potassium Level 3.9, Red Blood Count 2.36L, Red Cell Distribution Width 15.4, Segmented Neutrophils % 93H, Sodium Level 132L, Total Bilirubin 0.7, Total Protein 5.0L, White Blood Count 15.56H, Anisocytosis Slight, Basophils # (Auto) , Basophils # (Manual) 0.0, Basophils % (Manual) 0, Basophils (%) (Auto) , Eosinophils # 0.0, Eosinophils # (Auto) , Eosinophils % ( Manual) 0, Eosinophils (%) (Auto) , Hypochromasia Moderate, Lipase 27, Lymphocytes # (Auto) , Lymphocytes (%) (Auto) , Metamyelocytes % 0, Monocytes # 0.0, Monocytes # (Auto) , Monocytes % (Manual) 0L, Monocytes (%) (Auto) , Neutrophils # (Auto) , Neutrophils (%) (Auto) 11/18/16 10:20: Stool Occult Blood Negative 11/18/16 13:05: Hematocrit 25.30L, Hemoglobin 8.4L 11/19/16 05:15: Hematocrit 25.90L, Hemoglobin 8.6L, Alanine Aminotransferase (ALT/SGPT) 57, Albumin 2.2L, Albumin/Globulin Ratio 0.709L, Alkaline Phosphatase 97, Anion Gap 10.2, Aspartate Amino Transf (AST/SGOT) 70H, BUN/Creatinine Ratio 20, Basophils # (Auto) 0.0, Basophils (%) (Auto) 0, Blood Urea Nitrogen 11, Calcium Level 7.5L , Calcium/Ionized Calcium Ratio 3.8, Calculated Osmolality 257L, Carbon Dioxide Level 24, Chloride Level 103, Creatinine 0.55L, Eosinophils # (Auto) 0.5, Eosinophils (%) (Auto) 4, Estimat Glomerular Filtration Rate 128.7, Estimated GFR (Non- 106.4, Glucose Level 97, Lymphocytes # (Auto) 1.0, Lymphocytes (%) (Auto) 9L, Magnesium Level 1.8, Mean Corpuscular Hemoglobin 29.1 , Mean Corpuscular Hemoglobin Concent 33.2, Mean Corpuscular Volume 88, Mean Platelet Volume 9.5, Monocytes # (Auto) 0.1, Monocytes (%) (Auto) 1L, Neutrophils # (Auto) 9.9, Neutrophils (%) (Auto) 84H, Platelet Count 201, Potassium Level 3.6, Red Blood Count 2.96L, Red Cell Distribution Width 16.1H, Smear Scan Yes, Sodium Level 133L, Total Bilirubin 0.8, Total Protein 5.3L, White Blood Count 11.84H MICRO 11/18 Urine culture Gram negative bacillus 11/18 Blood culture Negative to date 11/17/16 Chest Xray Portable 1 View A/P INDICATION: Weakness. EXAM: Portable chest at 7:39 PM FINDINGS: A right IJ Port-A-Cath tip projects over the SVC. The heart size and pulmonary vascularity are normal. The lungs are clear. There are no effusions or pneumothoraces. IMPRESSION: No acute abnormalities in the chest. ASSESSMENT Erin Jenkins is a 81 year old female admitted from ED 11/18 with SIRS/ sepsis attributed to UTI. She has pancreatic cancer and is undergoing chemotherapy. She had anemia on admit with Hgb landy 6.9. She has other chronic problems. * SIRS/sepsis: attributed to UTI. Blood culture negative. Urine growing gram negative bacillus. * UTI: Due to gram negative bacillus. Cultures pending. Ceftriaxone. * Normocytic Anemia: Stool negative for occult blood. Hgb landy 6.9. Transfused 1 unit PRBC 11/18. Monitor and transfuse for Hgb < 8. * Hyponatremia: Na 129 on admit, improved to 133. Monitor trend. * Pain: Hydromorphone, acetaminophen. * Hypotension: Mild. Resolving. Treated sepsis. Gave IVF. * Deconditioning: PT eval and treat. * F/E/N: Diabetic diet. Port. IVF. I&O, daily weight. * Prophylaxis: Enoxaparin * Code Status: Full * Dispo: Inpatient, expecting 3 day stay. CHRONIC ISSUES * Diabetes Mellitus Type II: Metformin, sliding scale. * GERD: Pantoprazole * Edema; Hold furosemide, potassium. * JACLYN: Home CPAP. * Pancreatic Cancer: Obtain records from oncologist. RAMESH HURTADO MD November 19, 2016 08:47
[2016-11-19 11:17] VITALS: BP 138/65
[2016-11-19 15:28] VITALS: BP 115/42
[2016-11-19] MEDS: METFORMIN 500 MG PO SCH (17:13)
--- NOTE | 2016-11-19 18:04 | NUR ---
Patient ambulates to bathroom with standby assist throughout day shift. Remains afebrile and denies pain. Elevates left arm on two pillows. Pleasant and cooperative with cares. Call light in reach.
[2016-11-19 19:28] VITALS: BP 118/55
--- NOTE | 2016-11-19 20:00 | NUR ---
Resting in bed. Visiting with family. Alert and oriented. Denies any discomforts. SL intact without complications to site. Ambulates to bathroom slowly with cane. Voiding without difficulty. Afebrile. No chills or discomforts. Calls for assistance.
[2016-11-19 23:33] VITALS: BP 110/52
--- NOTE | 2016-11-20 | NUR ---
Repositioned in bed. C-pap on. Tolerates it well. No discomforts voiced.
[2016-11-20 03:46] VITALS: BP 119/55
[2016-11-20] MEDS: cefTRIAXone SODIUM 1,000 MG in SODIUM CHLORIDE 50 ML IV SCH (05:24)
[2016-11-20 05:55] LABS: BASOPHILS % (AUTO) 1 % (0-2); EOSINOPHILS # (AUTO) 0.8 10^3uL; EOSINOPHILS % (AUTO) 11 % (0-4); LYMPHOCYTES # (AUTO) 1.2 X10^3; MEAN CORPUSCULAR HEMOGLOBIN 28.8 PG (26.0-34.0); MEAN CORPUSCULAR HGB CONC 32.7 g/dL (31.0-37.0); MEAN CORPUSCULAR VOLUME 88 FL (80-100); MEAN PLATELET VOLUME 9.1 FL (6.0-9.5); MONOCYTES # (AUTO) 0.3 X10^3; MONOCYTES % (AUTO) 4 % (3-11); NEUTROPHILS # (AUTO) 4.8 X10^3; NEUTROPHILS % (AUTO) 67 % (51-67); PLATELET COUNT 203 10^3uL (150-450); WHITE BLOOD COUNT 7.25 10^3uL (4.0-11.0)
[2016-11-20] MEDS: PANTOPRAZOLE 40 MG (PROTONIX) TAB PO SCH (06:27)
[2016-11-20] MEDS: INSULIN LISPRO 1 UNIT/0.01 ML (HUMALOG) DOSE SC SCH ×4 (06:27→21:00)
--- NOTE | 2016-11-20 06:46 | NUR ---
Patient rested well tonight. Ambulates to the bathroom with stand by assist. Wears Tg's shape to left arm and bilateral lower extremities. No nausea or pain. Tolerates antibiotic well. Pleasant. Still has severe edema in bilateral legs and left arm. No skin breakdown. Heels dry and cracked. No concerns voiced. Call light within reach.
[2016-11-20 08:12] VITALS: BP 139/82
--- NOTE | 2016-11-20 08:20 | NUR ---
Sitting up in chair for breakfast. Alert and pleasant. Asking about getting hair shaved off this morning - states Cpap strap gets caught in hair. Denies pain
--- NOTE | 2016-11-20 08:42 | Progress Note (E) ---
Progress Note SUBJECTIVE Continues to improve. Remains afebrile. Weight up from admit. Has persistent BLE edema. WBC 7.25 now. No bandemia. Hgb stable at 9.3 after just 1 unit transfusion. On exam, legs remain edematous. She also has marked swelling in the left arm. Had polio affecting that arm but the swelling is fairly extensive , down to wrist. Denies pain in that arm. Had no recent IVs in that arm or other trauma, but DVT remains a possibility. Leg edema is chronic and symmetric. Updated her on findings, plan of care. OBJECTIVE Vital Signs Date Time Temp Pulse Resp B/P Pulse Ox O2 Delivery O2 Flow Rate FiO2 11/20/16 03:46 98.6 84 20 119/55 92 Room air I & O 11/19/16 11/20/16 Cumulative From/Thru 19:00 07:00 11/17/16 21:45 - 11/20/16 06:02 Intake Total 770 ml 737 ml 5983 ml Output Total 200 ml 1250 ml 2300 ml Balance 570 ml -513 ml 3683 ml GEN: Awake, interactive, oriented, NAD HEENT: EOMI, clear sclerae, mildly dry oral mucosa. CV: Regular with II/ systolic flow murmur at LSB. PULM: Faint and intermittent basilar rales bilaterally have resolved. ABD: Soft, NT/ND with normal bowel sounds. EXTR: 2+ BLE and pedal edema. Left arm has 3+ edema extending from wrist to shoulder. INTEG: Pallor. Age related changes. 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 Weight: 70.2 kg (64.5 kg on admit) Lab-Past 14 Days, 35 Results 11/17/16 22:00: Absolute Band Neutrophils 0.9, Alanine Aminotransferase (ALT/SGPT) 59, Albumin 2.8L, Albumin/Globulin Ratio 0.848L, Alkaline Phosphatase 119, Anion Gap 10.1, Aspartate Amino Transf (AST/SGOT) 96H, BUN/Creatinine Ratio 24H, Band Neutrophils % 6, Blood Morphology Comment Normal, Blood Urea Nitrogen 20H, Calcium Level 7.7L, Calcium/Ionized Calcium Ratio 3.7L, Calculated Osmolality 255L, Carbon Dioxide Level 25, Chloride Level 94L, Creatinine 0.84, Differential Total Cells Counted 100, Estimat Glomerular Filtration Rate 78.9, Estimated GFR (Non- 65.2, Ferritin 1556H, Glucose Level 143#H, Hematocrit 24.90L, Hemoglobin 8.1L, Iron (send out) 52, Lactic Acid Level 3.1H, Lymphocytes # 0.2, Lymphocytes % (Manual) 1L, Mean Corpuscular Hemoglobin 28.8, Mean Corpuscular Hemoglobin Concent 32.5, Mean Corpuscular Volume 89, Mean Platelet Volume 9.5, Neutrophils # 14.2, Platelet Count 186, Potassium Level 4.3 , Red Blood Count 2.81L, Red Cell Distribution Width 15.3, Segmented Neutrophils % 93H, Sodium Level 129L, Total Bilirubin 1.3#H, Total Iron Binding Capacity 168L, Total Protein 6.1L, Transferrin % Saturation 31, White Blood Count 15.27H 11/17/16 22:55: Urine Bacteria 3+H, Urine Bilirubin Negative, Urine Blood Trace-intactH, Urine Clarity Clear, Urine Collection Type Clean catch, Urine Color Yellow, Urine Glucose (UA) Negative, Urine Ketones Negative, Urine Leukocyte Esterase Negative , Urine Microscopic RBC 2-5, Urine Nitrite PositiveH, Urine Protein 1+H, Urine Renal Epithelial Cells 5-10, Urine Specific [place] 1.010, Urine Squamous Epithelial Cells 20-50, Urine Urobilinogen 1.0, Urine WBC 2-5, Urine pH 7.0, Volume Urine Centrifuged 12 ml 11/18/16 04:00: Lactic Acid Level 1.2 11/18/16 07:00: Absolute Band Neutrophils 0.0, Alanine Aminotransferase (ALT/SGPT) 53, Albumin 2.2#L, Albumin/Globulin Ratio 0.785L, Alkaline Phosphatase 74, Anion Gap 10.2, Aspartate Amino Transf (AST/SGOT) 79H, BUN/Creatinine Ratio 26H, Band Neutrophils % 0, Blood Morphology Comment See reference, Blood Urea Nitrogen 18 , Calcium Level 6.9*L, Calcium/Ionized Calcium Ratio 3.6L, Calculated Osmolality 257L, Carbon Dioxide Level 25, Chloride Level 101, Creatinine 0.69, Differential Total Cells Counted 100, Estimat Glomerular Filtration Rate 99.1, Estimated GFR (Non- 81.9, Glucose Level 103#, Hematocrit 21.00L , Hemoglobin 6.9*L, Lactic Acid Level 1.0, Lymphocytes # 1.1, Lymphocytes % ( Manual) 7L, Mean Corpuscular Hemoglobin 29.2, Mean Corpuscular Hemoglobin Concent 32.9, Mean Corpuscular Volume 89, Mean Platelet Volume 9.1, Neutrophils # 14.5, Platelet Count 156, Potassium Level 3.9, Red Blood Count 2.36L, Red Cell Distribution Width 15.4, Segmented Neutrophils % 93H, Sodium Level 132L, Total Bilirubin 0.7, Total Protein 5.0L, White Blood Count 15.56H, Anisocytosis Slight, Basophils # (Auto) , Basophils # (Manual) 0.0, Basophils % (Manual) 0, Basophils (%) (Auto) , Eosinophils # 0.0, Eosinophils # (Auto) , Eosinophils % ( Manual) 0, Eosinophils (%) (Auto) , Hypochromasia Moderate, Lipase 27, Lymphocytes # (Auto) , Lymphocytes (%) (Auto) , Metamyelocytes % 0, Monocytes # 0.0, Monocytes # (Auto) , Monocytes % (Manual) 0L, Monocytes (%) (Auto) , Neutrophils # (Auto) , Neutrophils (%) (Auto) 11/18/16 10:20: Stool Occult Blood Negative 11/18/16 13:05: Hematocrit 25.30L, Hemoglobin 8.4L 11/19/16 05:15: Hematocrit 25.90L, Hemoglobin 8.6L, Alanine Aminotransferase (ALT/SGPT) 57, Albumin 2.2L, Albumin/Globulin Ratio 0.709L, Alkaline Phosphatase 97, Anion Gap 10.2, Aspartate Amino Transf (AST/SGOT) 70H, BUN/Creatinine Ratio 20, Basophils # (Auto) 0.0, Basophils (%) (Auto) 0, Blood Urea Nitrogen 11, Calcium Level 7.5L , Calcium/Ionized Calcium Ratio 3.8, Calculated Osmolality 257L, Carbon Dioxide Level 24, Chloride Level 103, Creatinine 0.55L, Eosinophils # (Auto) 0.5, Eosinophils (%) (Auto) 4, Estimat Glomerular Filtration Rate 128.7, Estimated GFR (Non- 106.4, Glucose Level 97, Lymphocytes # (Auto) 1.0, Lymphocytes (%) (Auto) 9L, Magnesium Level 1.8, Mean Corpuscular Hemoglobin 29.1 , Mean Corpuscular Hemoglobin Concent 33.2, Mean Corpuscular Volume 88, Mean Platelet Volume 9.5, Monocytes # (Auto) 0.1, Monocytes (%) (Auto) 1L, Neutrophils # (Auto) 9.9, Neutrophils (%) (Auto) 84H, Platelet Count 201, Potassium Level 3.6, Red Blood Count 2.96L, Red Cell Distribution Width 16.1H, Smear Scan Yes, Sodium Level 133L, Total Bilirubin 0.8, Total Protein 5.3L, White Blood Count 11.84H 11/20/16 05:00: Hematocrit 28.40L, Hemoglobin 9.3L, Basophils # (Auto) 0.0, Basophils (%) (Auto ) 1, Eosinophils # (Auto) 0.8, Eosinophils (%) (Auto) 11H, Lymphocytes # (Auto) 1.2, Lymphocytes (%) (Auto) 17L, Mean Corpuscular Hemoglobin 28.8, Mean Corpuscular Hemoglobin Concent 32.7, Mean Corpuscular Volume 88, Mean Platelet Volume 9.1, Monocytes # (Auto) 0.3, Monocytes (%) (Auto) 4, Neutrophils # (Auto ) 4.8, Neutrophils (%) (Auto) 67, Platelet Count 203, Red Blood Count 3.23L, Red Cell Distribution Width 16.4H, White Blood Count 7.25 MICRO 11/18 Blood culture Negative to date SPEC #: [id number] VIGNESH: 11/17/16 STATUS: COMP REQ #: [id number] RECD: 11/17/[address]: MARY FAUSTIN MD Order Location: ED SOURCE: URINE DESCRIPTION: CLEAN CATC Procedure Result Verified URINE CULTURE Final Verified 11/19/16-1922 AM Source: URINE / CLEAN CATCH Order Location: EMERGENCY Site: [facility] Received : 11/18/16 14:35 Order#: [id number] Urine Culture FINAL 11/19/16 19:20 S Escherichia coli >100,000 cfu/ml E. coli Antibiotic NANCY INT Ampicillin >=32 R Ampicillin/sulbactam 8 S Cefazolin <=4 S Ceftriaxone <=1 S Ciprofloxacin >=4 R Gentamicin <=1 S Nitrofurantoin <=16 S Trimethoprim/Sulfa <=20 S S=SUSCEPTIBLE I=INTERMEDIATE R=RESISTANT S-DD= SUSCEPTIBLE, DOSE DEPENDENT IMAGING 11/20/16 LEFT ARM VENOUS DUPLEX: PENDING 11/17/16 Chest Xray Portable 1 View A/P INDICATION: Weakness. EXAM: Portable chest at 7:39 PM FINDINGS: A right IJ Port-A-Cath tip projects over the SVC. The heart size and pulmonary vascularity are normal. The lungs are clear. There are no effusions or pneumothoraces. IMPRESSION: No acute abnormalities in the chest. ASSESSMENT Erin Jenkins is a 81 year old female admitted from ED 11/18 with SIRS/ sepsis attributed to UTI. She has pancreatic cancer and is undergoing chemotherapy. She had anemia on admit with Hgb landy 6.9. She has other chronic problems. * SIRS/sepsis: Resolved. Attributed to UTI. Blood culture negative. Urine growing gram negative bacillus. * UTI due to E coli: Culture as noted. Ceftriaxone x 5 days. * Normocytic Anemia: Stool negative for occult blood. Hgb landy 6.9. Transfused 1 unit PRBC 11/18. Hgb improved to 9.3. Monitored and transfused for Hgb < 8. * Hyponatremia: Na 129 on admit, improved to 133. Monitor trend. * Pain: Stable. Hydromorphone, acetaminophen. * Hypotension: Resolved. Mild on admit, attributed to sepsis. Held furosemide initially. Treated sepsis. Gave IVF. * BLE Edema: Furosemide had been held due to hypotension but restarted 11/20 due to BLE edema. NAHOMI barrera. Daily weight, I&O. 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 Check for DVT with venous duplex. * Deconditioning: PT eval and treat. * F/E/N: Diabetic diet. Port. IVF. I&O, daily weight. * Prophylaxis: Enoxaparin * Code Status: Full * Dispo: Inpatient, expecting 3 day stay. Prepare for discharge to [facility] for skilled care. CHRONIC ISSUES * Diabetes Mellitus Type II: Metformin, sliding scale. * GERD: Pantoprazole * Edema; Hold furosemide, potassium. * JACLYN: Home CPAP. * Pancreatic Cancer: Obtain records from oncologist. RAMESH HURTADO MD November 20, 2016 07:49
[2016-11-20] MEDS: POTASSIUM CHLORIDE ER 20 MEQ TABLET PO SCH (09:30)
[2016-11-20] MEDS: SODIUM CHLORIDE FLUSH 3 ML SYR IV SCH ×2 (09:30→15:22)
[2016-11-20] MEDS: FUROSEMIDE 100 MG/10 ML (LASIX) VIAL IV SCH ×2 (09:30→15:22)
[2016-11-20 12:02] VITALS: BP 102/43
--- NOTE | 2016-11-20 12:18 | Diagnostic Imaging Report ---
EXAM: Left upper extremity venous Doppler ultrasound. DATE: November 20, 2016. INDICATION: 81-year-old female, left arm swelling. COMPARISON: None. FINDINGS: The left internal jugular vein, subclavian vein, and axillary vein are patent. The left brachial vein is patent. The left cephalic vein is patent. The left basilic vein is patent. The left ulnar and radial veins are patent. IMPRESSION: 1. Negative for left upper extremity deep venous thrombosis. Dictated by: Dictated on workstation # [id number]
--- NOTE | 2016-11-20 12:34 | Physical Therapy Evaluation(E) ---
Initial Evaluation Service Date/Time 11/20/16, 12:29 Primary Diagnosis: (1) Sepsis ICD Code: A41.9 (2) UTI (urinary tract infection) ICD Code: N39.0 (3) Pancreatic cancer ICD Code: C25.9 Treatment Diagnosis: (1) Pancreatic cancer ICD Code: C25.9 (2) UTI (urinary tract infection) ICD Code: N39.0 (3) Sepsis ICD Code: A41.9 Onset Date: 11/18/2016 Start of Care Date: November 20, 2016 Resuscitation Status: Full Code Precaution/Isolation: Standard Precautions Fall Level: Low Risk 25-50 Initial Assessment Reason for Rehab: Increase Mobility, Increase Strength, Increase Balance, Increase Transfers, Increase Endurance Medical History: Cancer, Hypertension, Post Polio Syndrome, Other Pain Location/Comment Patient denies pain. Prior Level of Function The patient was living independently. Had completed a course of long-term facility rehab in October. Ambulates with cane. Comment Patient had doppler of LUE and reports they did not find a blood clot. Distance Walked in Feet Patient fatigued when PT saw her secondary to being on diuretic and having to get up and down out of chair frequently to use commode. Patient ambulated to shower this AM also. She was agreeable to sitting activity. ROM/Strength Hip Mobility: Right Hip Strength: 3 Left Hip Strength: 3 Knee Flexion Mobility: Right Knee Flexion Strength: 3 Left Knee Flexion Strength: 3 Knee Extension Mobility: Right Knee Extension Strength: 3 Left Knee Extension Strength: 3 Ankle Mobility: Right Ankle Strength: 3 Left Ankle Strength: 3 Assessment/Goals Initial Transfer Assessment Rolling: Not Assessed/NA Sit-Supine: Not Assessed/NA Sitting Edge of Bed: Modified [place] (sitting in chair) Sit-Stand from Bed: Minimal Assistance (assist of 1 per patient report) Stand-Sit: Minimal Assistance (assist of one per patient report) Ambulation: Not Assessed/NA Coding Time In: 1156 Time Out: 1215 Total Minutes: 21 Charges: 25942 Eval< 20 min RIVERA FRANKLIN PT November 20, 2016 12:34
[2016-11-20 15:32] VITALS: BP 123/57
[2016-11-20] MEDS: METFORMIN 500 MG PO SCH (17:36)
--- NOTE | 2016-11-20 18:00 | NUR ---
Up in chair much of day with legs elevated. T-G shapes on legs bilaterally. Left hand up on pillow most of day. Swelling much less after hand up. Venous study done of left arm - tech stated result was negative for clots. Has denied pain. Alert and oriented.
[2016-11-20 20:03] VITALS: BP 112/48
--- NOTE | 2016-11-20 22:00 | NUR ---
Patient rested in the recliner most of the day with legs elevated. Did void numerous times due to Lasix that she was given. Left arm edema and bilateral lower extremity edema decreasing. Tg shapes removed for the night due to request. Ambulates to bathroom with stand by assist and uses cane. Does well. Denies pain or nausea. No concerns or discomforts voiced at this time. C-pap placed on for the night.
[2016-11-21] VITALS (7 sets, daily range): BP systolic 100–128; BP diastolic 43–60
[2016-11-21] MEDS: INSULIN LISPRO 1 UNIT/0.01 ML (HUMALOG) DOSE SC SCH ×4 (06:04→20:45)
[2016-11-21] MEDS: cefTRIAXone SODIUM 1,000 MG in SODIUM CHLORIDE 50 ML IV SCH (06:05)
[2016-11-21] MEDS: PANTOPRAZOLE 40 MG (PROTONIX) TAB PO SCH (06:11)
[2016-11-21 06:41] LABS: ANION GAP 9.9 MEQ/L (3-15); MAGNESIUM* 1.7 mg/dL (1.6-2.3)
--- NOTE | 2016-11-21 07:47 | NUR ---
Rested well during the night. Was only up to the restroom twice to void. Tolerates IV antibiotic without difficulty. Keeps left arm elevated on pillow. Comfortable this morning without any concerns. Call light within reach.
--- NOTE | 2016-11-21 08:01 | NUR ---
Sitting up in bed to eat breakfast. States slept very well. Swelling much better in bilateral legs and left arm. Left arm remains up on pillow. T-G shapes off at this time. Denies pain.
[2016-11-21] MEDS: FUROSEMIDE 100 MG/10 ML (LASIX) VIAL IV SCH (08:53)
[2016-11-21] MEDS: SODIUM CHLORIDE FLUSH 3 ML SYR IV SCH (08:53)
[2016-11-21] MEDS: POTASSIUM CHLORIDE ER 20 MEQ TABLET PO SCH ×2 (08:53→17:16)
--- NOTE | 2016-11-21 11:22 | Progress Note (E) ---
Progress Note SUBJECTIVE Overnight, no new issues. Vitals stable. Chemistry stable. Left arm sono was negative for DVT. Excellent diuresis with furosemide. Weight has come down. Continuing IV furosemide BID for 2 more doses (this afternoon, then in AM) but then can probably switch to PO. OBJECTIVE Vital Signs Date Time Temp Pulse Resp B/P Pulse Ox O2 Delivery O2 Flow Rate FiO2 11/21/16 07:32 97.2 85 18 128/51 94 Room air 0.00 I & O 11/20/16 11/21/16 Cumulative From/Thru 19:00 07:00 11/17/16 21:45 - 11/21/16 06:37 Intake Total 537 ml 700 ml 7220 ml Output Total 1150 ml 3425 ml 6875 ml Balance -613 ml -2725 ml 345 ml GEN: Awake, interactive, oriented, NAD HEENT: EOMI, clear sclerae, mildly dry oral mucosa. CV: Regular with II/ systolic flow murmur at LSB. PULM: Faint and intermittent basilar rales bilaterally have resolved. ABD: Soft, NT/ND with normal bowel sounds. EXTR: 2+ BLE and pedal edema. Left arm had 3+ edema but this has improved with furosemide. INTEG: Pallor. Age related changes. 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 Weight: 67.7 kg (64.5 kg on admit) Lab-Past 14 Days, 35 Results 11/17/16 22:00: Absolute Band Neutrophils 0.9, Alanine Aminotransferase (ALT/SGPT) 59, Albumin 2.8L, Albumin/Globulin Ratio 0.848L, Alkaline Phosphatase 119, Anion Gap 10.1, Aspartate Amino Transf (AST/SGOT) 96H, BUN/Creatinine Ratio 24H, Band Neutrophils % 6, Blood Morphology Comment Normal, Blood Urea Nitrogen 20H, Calcium Level 7.7L, Calcium/Ionized Calcium Ratio 3.7L, Calculated Osmolality 255L, Carbon Dioxide Level 25, Chloride Level 94L, Creatinine 0.84, Differential Total Cells Counted 100, Estimat Glomerular Filtration Rate 78.9, Estimated GFR (Non- 65.2, Ferritin 1556H, Glucose Level 143#H, Hematocrit 24.90L, Hemoglobin 8.1L, Iron (send out) 52, Lactic Acid Level 3.1H, Lymphocytes # 0.2, Lymphocytes % (Manual) 1L, Mean Corpuscular Hemoglobin 28.8, Mean Corpuscular Hemoglobin Concent 32.5, Mean Corpuscular Volume 89, Mean Platelet Volume 9.5, Neutrophils # 14.2, Platelet Count 186, Potassium Level 4.3 , Red Blood Count 2.81L, Red Cell Distribution Width 15.3, Segmented Neutrophils % 93H, Sodium Level 129L, Total Bilirubin 1.3#H, Total Iron Binding Capacity 168L, Total Protein 6.1L, Transferrin % Saturation 31, White Blood Count 15.27H 11/17/16 22:55: Urine Bacteria 3+H, Urine Bilirubin Negative, Urine Blood Trace-intactH, Urine Clarity Clear, Urine Collection Type Clean catch, Urine Color Yellow, Urine Glucose (UA) Negative, Urine Ketones Negative, Urine Leukocyte Esterase Negative , Urine Microscopic RBC 2-5, Urine Nitrite PositiveH, Urine Protein 1+H, Urine Renal Epithelial Cells 5-10, Urine Specific [place] 1.010, Urine Squamous Epithelial Cells 20-50, Urine Urobilinogen 1.0, Urine WBC 2-5, Urine pH 7.0, Volume Urine Centrifuged 12 ml 11/18/16 04:00: Lactic Acid Level 1.2 11/18/16 07:00: Absolute Band Neutrophils 0.0, Alanine Aminotransferase (ALT/SGPT) 53, Albumin 2.2#L, Albumin/Globulin Ratio 0.785L, Alkaline Phosphatase 74, Anion Gap 10.2, Aspartate Amino Transf (AST/SGOT) 79H, BUN/Creatinine Ratio 26H, Band Neutrophils % 0, Blood Morphology Comment See reference, Blood Urea Nitrogen 18 , Calcium Level 6.9*L, Calcium/Ionized Calcium Ratio 3.6L, Calculated Osmolality 257L, Carbon Dioxide Level 25, Chloride Level 101, Creatinine 0.69, Differential Total Cells Counted 100, Estimat Glomerular Filtration Rate 99.1, Estimated GFR (Non- 81.9, Glucose Level 103#, Hematocrit 21.00L , Hemoglobin 6.9*L, Lactic Acid Level 1.0, Lymphocytes # 1.1, Lymphocytes % ( Manual) 7L, Mean Corpuscular Hemoglobin 29.2, Mean Corpuscular Hemoglobin Concent 32.9, Mean Corpuscular Volume 89, Mean Platelet Volume 9.1, Neutrophils # 14.5, Platelet Count 156, Potassium Level 3.9, Red Blood Count 2.36L, Red Cell Distribution Width 15.4, Segmented Neutrophils % 93H, Sodium Level 132L, Total Bilirubin 0.7, Total Protein 5.0L, White Blood Count 15.56H, Anisocytosis Slight, Basophils # (Auto) , Basophils # (Manual) 0.0, Basophils % (Manual) 0, Basophils (%) (Auto) , Eosinophils # 0.0, Eosinophils # (Auto) , Eosinophils % ( Manual) 0, Eosinophils (%) (Auto) , Hypochromasia Moderate, Lipase 27, Lymphocytes # (Auto) , Lymphocytes (%) (Auto) , Metamyelocytes % 0, Monocytes # 0.0, Monocytes # (Auto) , Monocytes % (Manual) 0L, Monocytes (%) (Auto) , Neutrophils # (Auto) , Neutrophils (%) (Auto) 11/18/16 10:20: Stool Occult Blood Negative 11/18/16 13:05: Hematocrit 25.30L, Hemoglobin 8.4L 11/19/16 05:15: Hematocrit 25.90L, Hemoglobin 8.6L, Alanine Aminotransferase (ALT/SGPT) 57, Albumin 2.2L, Albumin/Globulin Ratio 0.709L, Alkaline Phosphatase 97, Anion Gap 10.2, Aspartate Amino Transf (AST/SGOT) 70H, BUN/Creatinine Ratio 20, Basophils # (Auto) 0.0, Basophils (%) (Auto) 0, Blood Urea Nitrogen 11, Calcium Level 7.5L , Calcium/Ionized Calcium Ratio 3.8, Calculated Osmolality 257L, Carbon Dioxide Level 24, Chloride Level 103, Creatinine 0.55L, Eosinophils # (Auto) 0.5, Eosinophils (%) (Auto) 4, Estimat Glomerular Filtration Rate 128.7, Estimated GFR (Non- 106.4, Glucose Level 97, Lymphocytes # (Auto) 1.0, Lymphocytes (%) (Auto) 9L, Magnesium Level 1.8, Mean Corpuscular Hemoglobin 29.1 , Mean Corpuscular Hemoglobin Concent 33.2, Mean Corpuscular Volume 88, Mean Platelet Volume 9.5, Monocytes # (Auto) 0.1, Monocytes (%) (Auto) 1L, Neutrophils # (Auto) 9.9, Neutrophils (%) (Auto) 84H, Platelet Count 201, Potassium Level 3.6, Red Blood Count 2.96L, Red Cell Distribution Width 16.1H, Smear Scan Yes, Sodium Level 133L, Total Bilirubin 0.8, Total Protein 5.3L, White Blood Count 11.84H 11/20/16 05:00: Hematocrit 28.40L, Hemoglobin 9.3L, Basophils # (Auto) 0.0, Basophils (%) (Auto ) 1, Eosinophils # (Auto) 0.8, Eosinophils (%) (Auto) 11H, Lymphocytes # (Auto) 1.2, Lymphocytes (%) (Auto) 17L, Mean Corpuscular Hemoglobin 28.8, Mean Corpuscular Hemoglobin Concent 32.7, Mean Corpuscular Volume 88, Mean Platelet Volume 9.1, Monocytes # (Auto) 0.3, Monocytes (%) (Auto) 4, Neutrophils # (Auto ) 4.8, Neutrophils (%) (Auto) 67, Platelet Count 203, Red Blood Count 3.23L, Red Cell Distribution Width 16.4H, White Blood Count 7.25 11/21/16 05:00: Albumin 2.0L, Anion Gap 9.9, Blood Urea Nitrogen 13, Calcium Level 7.7L, Carbon Dioxide Level 27, Chloride Level 101, Creatinine 0.70, Estimat Glomerular Filtration Rate 97.4, Estimated GFR (Non- 80.5, Glucose Level 102, Magnesium Level 1.7, Phosphorus Level 3.1, Potassium Level 3.5, Sodium Level 135 MICRO 11/18 Blood culture Negative to date SPEC #: [id number] VIGNESH: 11/17/16 STATUS: COMP REQ #: [id number] RECD: 11/17/[address]: MARY FAUSTIN MD Order Location: ED SOURCE: URINE DESCRIPTION: CLEAN CATC Procedure Result Verified URINE CULTURE Final Verified 11/19/16-1922 AM Source: URINE / CLEAN CATCH Order Location: EMERGENCY Site: [facility] Received : 11/18/16 14:35 Order#: [id number] Urine Culture FINAL 11/19/16 19:20 S Escherichia coli >100,000 cfu/ml E. coli Antibiotic NANCY INT Ampicillin >=32 R Ampicillin/sulbactam 8 S Cefazolin <=4 S Ceftriaxone <=1 S Ciprofloxacin >=4 R Gentamicin <=1 S Nitrofurantoin <=16 S Trimethoprim/Sulfa <=20 S S=SUSCEPTIBLE I=INTERMEDIATE R=RESISTANT S-DD= SUSCEPTIBLE, DOSE DEPENDENT IMAGING 11/20/16 US-VENOUS STUDY EXT LT EXAM: Left upper extremity venous Doppler ultrasound. DATE: November 20, 2016. INDICATION: 81-year-old female, left arm swelling. COMPARISON: None. FINDINGS: The left internal jugular vein, subclavian vein, and axillary vein are patent. The left brachial vein is patent. The left cephalic vein is patent. The left basilic vein is patent. The left ulnar and radial veins are patent. IMPRESSION: 1. Negative for left upper extremity deep venous thrombosis. 11/17/16 Chest Xray Portable 1 View A/P INDICATION: Weakness. EXAM: Portable chest at 7:39 PM FINDINGS: A right IJ Port-A-Cath tip projects over the SVC. The heart size and pulmonary vascularity are normal. The lungs are clear. There are no effusions or pneumothoraces. IMPRESSION: No acute abnormalities in the chest. ASSESSMENT Erin Jenkins is a 81 year old female admitted from ED 11/18 with SIRS/ sepsis attributed to UTI due to E coli. She has pancreatic cancer and is undergoing chemotherapy. She had anemia on admit with Hgb landy 6.9. She has other chronic problems. * SIRS/sepsis: Resolved. Attributed to UTI. Blood culture negative. Urine growing gram negative bacillus. * UTI due to E coli: Culture as noted. Ceftriaxone x 5 days. * Normocytic Anemia: Stool negative for occult blood. Hgb landy 6.9. Transfused 1 unit PRBC 11/18. Hgb improved to 9.3. Monitored and transfused for Hgb < 8. * Hyponatremia: Na 129 on admit, improved to 135. Monitor trend. * Pain: Stable. Hydromorphone, acetaminophen. * Hypotension: Resolved. Mild on admit, attributed to sepsis. Held furosemide initially. Treated sepsis. Gave IVF. * BLE Edema: Furosemide had been held due to hypotension but restarted 11/20 due to BLE edema. Can probably transition to oral furosemide 11/22. NAHOMI hose. Daily weight, I&O. 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 Sono negative for DVT. Diuresis. Compression hose. * Deconditioning: PT eval and treat. * F/E/N: Diabetic diet. Port. IVF. I&O, daily weight. * Prophylaxis: Enoxaparin * Code Status: Full * Dispo: Inpatient, expecting 3 day stay. Prepare for discharge to [facility] for skilled care. CHRONIC ISSUES * Diabetes Mellitus Type II: Metformin, sliding scale. * GERD: Pantoprazole * Edema: Furosemide, potassium. * JACLYN: Home CPAP. * Pancreatic Cancer: Reviewed records from oncologist. Locally advanced, unresectable cancer in the pancreatic head. T2 N1 M0. On gemcitabine and paclitaxel (Abraxane). RAMESH HURTADO MD November 21, 2016 11:09
[2016-11-21] MEDS: MAGNESIUM OXIDE 400 MG (MAG-OX) TAB PO SCH (12:11)
[2016-11-21] MEDS: METFORMIN 500 MG PO SCH (18:11)
--- NOTE | 2016-11-21 18:15 | NUR ---
Up in chair all afternoon. Denies discomfort. Family visited much of afternoon. Alert and oriented. Resp. even and unlabored. Voided frequently after dose of Lasix this morning. T-G shapes off of left arm and legs at this time. States edema mostly gone and nearly back to baseline.
[2016-11-22 03:58] VITALS: BP 121/53
[2016-11-22] MEDS: cefTRIAXone SODIUM 1,000 MG in SODIUM CHLORIDE 50 ML IV SCH (05:27)
--- NOTE | 2016-11-22 05:36 | NUR ---
IV site lost. Dr Castillo notified; okay to access right port a cath.
--- NOTE | 2016-11-22 06:03 | NUR ---
Power port accessed per sterile technique. 20g 1 inch needle utilized. Good blood return. Pt tolerates well. Denies pain. Resp even and non labored on RA.
[2016-11-22] MEDS: PANTOPRAZOLE 40 MG (PROTONIX) TAB PO SCH (06:08)
[2016-11-22 06:12] LABS: MEAN CORPUSCULAR HEMOGLOBIN 28.9 PG (26.0-34.0); MEAN CORPUSCULAR HGB CONC 32.8 g/dL (31.0-37.0); MEAN CORPUSCULAR VOLUME 88 FL (80-100); PLATELET COUNT 177 10^3uL (150-450); WHITE BLOOD COUNT 10.22 10^3uL (4.0-11.0)
[2016-11-22 06:20] LABS: BAND NEUTROPHILS % 4 % (0-6); EOSINOPHILS % 5 % (0-4); LYMPHOCYTES # 3.2 #; MONOCYTES # 0.5 #; MONOCYTES % 5 % (3-11); RBC MORPH NORMAL (NORMAL); SEGMENTED NEUTROPHILS % 55 % (51-67); TOTAL CELLS COUNTED 100
[2016-11-22] MEDS: INSULIN LISPRO 1 UNIT/0.01 ML (HUMALOG) DOSE SC SCH ×2 (06:28→11:30)
[2016-11-22 06:40] LABS: ALBUMIN 2.3 g/dL (3.4-5.0); ANION GAP 9.6 MEQ/L (3-15)
--- NOTE | 2016-11-22 07:25 | NUR ---
Patient sitting at edge of bed upon shift assessment. Alert and oriented X3. Denies pain or distress. Respirations even and non-labored on roomair. Left arm noted to have trace pitting edema. BLE with trace pitting edema. Updated on plan of care for shift. Call light in reach.
[2016-11-22 08:08] VITALS: BP 120/68
[2016-11-22] MEDS: MAGNESIUM OXIDE 400 MG (MAG-OX) TAB PO SCH (08:29)
[2016-11-22] MEDS: POTASSIUM CHLORIDE ER 20 MEQ TABLET PO SCH (08:29)
[2016-11-22] MEDS ORDERED: KCL20TCR PO (09:36)
[2016-11-22] MEDS ORDERED: MGX400T PO (09:36)
--- NOTE | 2016-11-22 09:39 | Discharge Instructions (E) ---
Discharge Instructions Instructions Continue same medications as before Contact your doctor for questions or concerns You will be going to [facility] for shelter Activity Instructions as tolerates Doctor's Appointment Appt with Dr Payton November 23 at 4 pm Discharge Diet: Carbohydrate controlled Ann Marie Bacon APRN November 22, 2016 09:39
--- NOTE | 2016-11-22 09:45 | Discharge Summary (E FT) ---
Discharge Summary (E FT) Admit Date November 17, 2016 at 23:45 Discharge Date Nov 22 2016 Admitting Provider Yosef Dorado MD Primary Care Provider Tammy Clarke MD Attending Provider Yosef Dorado MD Consulting Provider Hospital Course Summary History of present illness: This is a 81-year-old female that lives independently at home. The patient was in her normal state of health until diagnosed with pancreatic cancer in September of this year. The patient underwent a stent placement presumably of her common bile duct 3 weeks ago. The patient was doing well. Had completed her first round of chemotherapy. The patient had onset of weakness. Increasing somnolence. Patient would fall asleep easily. Subsequently patient had a significant episodes or Reiters. Patient was evaluated by a home health provider. And referred to the emergency department for further assessment. In the emergency department the patients urine demonstrates evidence of infection. Other sources of infection were not identified. The patient is to be admitted for IV fluids and IV antibiotics. She is having a good morning- will get up to shower. Ate well for breakfast- Denies any new issues or complaints- Ready for [facility] Vital Signs Date Time Temp Pulse Resp B/P Pulse Ox O2 Delivery O2 Flow Rate FiO2 11/22/16 08:08 96.2 101 20 120/68 96 Room air 11/21/16 15:23 0.00 GEN: Awake, interactive, oriented, NAD HEENT: EOMI, clear sclerae, mildly dry oral mucosa. CV: Regular with II/ systolic flow murmur at LSB. PULM: Lungs clear bilaterally ABD: Soft, NT/ND with normal bowel sounds. EXTR: 2+ BLE and pedal edema. Left arm had 3+ edema but this has improved with furosemide. INTEG: Pallor. Age related changes. 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 Weight: 67.7 kg (64.5 kg on admit) Lab-Past 14 Days, 35 Results 11/17/16 22:00: Absolute Band Neutrophils 0.9, Alanine Aminotransferase (ALT/SGPT) 59, Albumin 2.8L, Albumin/Globulin Ratio 0.848L, Alkaline Phosphatase 119, Anion Gap 10.1, Aspartate Amino Transf (AST/SGOT) 96H, BUN/Creatinine Ratio 24H, Band Neutrophils % 6, Blood Morphology Comment Normal, Blood Urea Nitrogen 20H, Calcium Level 7.7L, Calcium/Ionized Calcium Ratio 3.7L, Calculated Osmolality 255L, Carbon Dioxide Level 25, Chloride Level 94L, Creatinine 0.84, Differential Total Cells Counted 100, Estimat Glomerular Filtration Rate 78.9, Estimated GFR (Non- 65.2, Ferritin 1556H, Glucose Level 143#H, Hematocrit 24.90L, Hemoglobin 8.1L, Iron (send out) 52, Lactic Acid Level 3.1H, Lymphocytes # 0.2, Lymphocytes % (Manual) 1L, Mean Corpuscular Hemoglobin 28.8, Mean Corpuscular Hemoglobin Concent 32.5, Mean Corpuscular Volume 89, Mean Platelet Volume 9.5, Neutrophils # 14.2, Platelet Count 186, Potassium Level 4.3 , Red Blood Count 2.81L, Red Cell Distribution Width 15.3, Segmented Neutrophils % 93H, Sodium Level 129L, Total Bilirubin 1.3#H, Total Iron Binding Capacity 168L, Total Protein 6.1L, Transferrin % Saturation 31, White Blood Count 15.27H 11/17/16 22:55: Urine Bacteria 3+H, Urine Bilirubin Negative, Urine Blood Trace-intactH, Urine Clarity Clear, Urine Collection Type Clean catch, Urine Color Yellow, Urine Glucose (UA) Negative, Urine Ketones Negative, Urine Leukocyte Esterase Negative , Urine Microscopic RBC 2-5, Urine Nitrite PositiveH, Urine Protein 1+H, Urine Renal Epithelial Cells 5-10, Urine Specific [place] 1.010, Urine Squamous Epithelial Cells 20-50, Urine Urobilinogen 1.0, Urine WBC 2-5, Urine pH 7.0, Volume Urine Centrifuged 12 ml 11/18/16 04:00: Lactic Acid Level 1.2 11/18/16 07:00: Absolute Band Neutrophils 0.0, Alanine Aminotransferase (ALT/SGPT) 53, Albumin 2.2#L, Albumin/Globulin Ratio 0.785L, Alkaline Phosphatase 74, Anion Gap 10.2, Aspartate Amino Transf (AST/SGOT) 79H, BUN/Creatinine Ratio 26H, Band Neutrophils % 0, Blood Morphology Comment See reference, Blood Urea Nitrogen 18 , Calcium Level 6.9*L, Calcium/Ionized Calcium Ratio 3.6L, Calculated Osmolality 257L, Carbon Dioxide Level 25, Chloride Level 101, Creatinine 0.69, Differential Total Cells Counted 100, Estimat Glomerular Filtration Rate 99.1, Estimated GFR (Non- 81.9, Glucose Level 103#, Hematocrit 21.00L , Hemoglobin 6.9*L, Lactic Acid Level 1.0, Lymphocytes # 1.1, Lymphocytes % ( Manual) 7L, Mean Corpuscular Hemoglobin 29.2, Mean Corpuscular Hemoglobin Concent 32.9, Mean Corpuscular Volume 89, Mean Platelet Volume 9.1, Neutrophils # 14.5, Platelet Count 156, Potassium Level 3.9, Red Blood Count 2.36L, Red Cell Distribution Width 15.4, Segmented Neutrophils % 93H, Sodium Level 132L, Total Bilirubin 0.7, Total Protein 5.0L, White Blood Count 15.56H, Anisocytosis Slight, Basophils # (Auto) , Basophils # (Manual) 0.0, Basophils % (Manual) 0, Basophils (%) (Auto) , Eosinophils # 0.0, Eosinophils # (Auto) , Eosinophils % ( Manual) 0, Eosinophils (%) (Auto) , Hypochromasia Moderate, Lipase 27, Lymphocytes # (Auto) , Lymphocytes (%) (Auto) , Metamyelocytes % 0, Monocytes # 0.0, Monocytes # (Auto) , Monocytes % (Manual) 0L, Monocytes (%) (Auto) , Neutrophils # (Auto) , Neutrophils (%) (Auto) 11/18/16 10:20: Stool Occult Blood Negative 11/18/16 13:05: Hematocrit 25.30L, Hemoglobin 8.4L 11/19/16 05:15: Hematocrit 25.90L, Hemoglobin 8.6L, Alanine Aminotransferase (ALT/SGPT) 57, Albumin 2.2L, Albumin/Globulin Ratio 0.709L, Alkaline Phosphatase 97, Anion Gap 10.2, Aspartate Amino Transf (AST/SGOT) 70H, BUN/Creatinine Ratio 20, Basophils # (Auto) 0.0, Basophils (%) (Auto) 0, Blood Urea Nitrogen 11, Calcium Level 7.5L , Calcium/Ionized Calcium Ratio 3.8, Calculated Osmolality 257L, Carbon Dioxide Level 24, Chloride Level 103, Creatinine 0.55L, Eosinophils # (Auto) 0.5, Eosinophils (%) (Auto) 4, Estimat Glomerular Filtration Rate 128.7, Estimated GFR (Non- 106.4, Glucose Level 97, Lymphocytes # (Auto) 1.0, Lymphocytes (%) (Auto) 9L, Magnesium Level 1.8, Mean Corpuscular Hemoglobin 29.1 , Mean Corpuscular Hemoglobin Concent 33.2, Mean Corpuscular Volume 88, Mean Platelet Volume 9.5, Monocytes # (Auto) 0.1, Monocytes (%) (Auto) 1L, Neutrophils # (Auto) 9.9, Neutrophils (%) (Auto) 84H, Platelet Count 201, Potassium Level 3.6, Red Blood Count 2.96L, Red Cell Distribution Width 16.1H, Smear Scan Yes, Sodium Level 133L, Total Bilirubin 0.8, Total Protein 5.3L, White Blood Count 11.84H 11/20/16 05:00: Hematocrit 28.40L, Hemoglobin 9.3L, Basophils # (Auto) 0.0, Basophils (%) (Auto ) 1, Eosinophils # (Auto) 0.8, Eosinophils (%) (Auto) 11H, Lymphocytes # (Auto) 1.2, Lymphocytes (%) (Auto) 17L, Mean Corpuscular Hemoglobin 28.8, Mean Corpuscular Hemoglobin Concent 32.7, Mean Corpuscular Volume 88, Mean Platelet Volume 9.1, Monocytes # (Auto) 0.3, Monocytes (%) (Auto) 4, Neutrophils # (Auto ) 4.8, Neutrophils (%) (Auto) 67, Platelet Count 203, Red Blood Count 3.23L, Red Cell Distribution Width 16.4H, White Blood Count 7.25 11/21/16 05:00: Albumin 2.0L, Anion Gap 9.9, Blood Urea Nitrogen 13, Calcium Level 7.7L, Carbon Dioxide Level 27, Chloride Level 101, Creatinine 0.70, Estimat Glomerular Filtration Rate 97.4, Estimated GFR (Non- 80.5, Glucose Level 102, Magnesium Level 1.7, Phosphorus Level 3.1, Potassium Level 3.5, Sodium Level 135 Laboratory Results Past 24 Hrs 11/22/16 05:30: Absolute Band Neutrophils 0.4, Albumin 2.3, Anion Gap 9.6, Band Neutrophils % 4 , Basophils # (Auto) , Basophils # (Manual) 0.0, Basophils % (Manual) 0, Basophils (%) (Auto) , Blood Morphology Comment Normal, Blood Urea Nitrogen 15, C-Reactive Protein 5.40, Calcium Level 8.1, Carbon Dioxide Level 28, Chloride Level 100, Creatinine 0.69, Differential Total Cells Counted 100, Eosinophils # 0.5, Eosinophils # (Auto) , Eosinophils % (Manual) 5, Eosinophils (%) (Auto) , Estimat Glomerular Filtration Rate 99.1, Estimated GFR (Non- 81.9, Glucose Level 101, Hematocrit 28.70, Hemoglobin 9.4, Lymphocytes # 3.2, Lymphocytes # (Auto) , Lymphocytes % (Manual) 31, Lymphocytes (%) (Auto) , Mean Corpuscular Hemoglobin 28.9, Mean Corpuscular Hemoglobin Concent 32.8, Mean Corpuscular Volume 88, Mean Platelet Volume 9.0, Metamyelocytes % 0, Monocytes # 0.5, Monocytes # (Auto) , Monocytes % (Manual) 5, Monocytes (%) (Auto) , Neutrophils # 5.6, Neutrophils # (Auto) , Neutrophils (%) (Auto) , Phosphorus Level 3.6, Platelet Count 177, Potassium Level 4.0, Red Blood Count 3.25, Red Cell Distribution Width 16.4, Segmented Neutrophils % 55, Sodium Level 134, White Blood Count 10.22 MICRO 11/18 Blood culture Negative to date SPEC #: [id number] VIGNESH: 11/17/16 STATUS: COMP REQ #: [id number] RECD: 11/17/[address]: MARY FAUSTIN MD Order Location: ED SOURCE: URINE DESCRIPTION: CLEAN CATC Procedure Result Verified URINE CULTURE Final Verified 11/19/16-1922 AM Source: URINE / CLEAN CATCH Order Location: EMERGENCY Site: [facility] Received : 11/18/16 14:35 Order#: [id number] Urine Culture FINAL 11/19/16 19:20 S Escherichia coli >100,000 cfu/ml E. coli Antibiotic NANCY INT Ampicillin >=32 R Ampicillin/sulbactam 8 S Cefazolin <=4 S Ceftriaxone <=1 S Ciprofloxacin >=4 R Gentamicin <=1 S Nitrofurantoin <=16 S Trimethoprim/Sulfa <=20 S S=SUSCEPTIBLE I=INTERMEDIATE R=RESISTANT S-DD= SUSCEPTIBLE, DOSE DEPENDENT IMAGING 11/20/16 US-VENOUS STUDY EXT LT EXAM: Left upper extremity venous Doppler ultrasound. DATE: November 20, 2016. INDICATION: 81-year-old female, left arm swelling. COMPARISON: None. FINDINGS: The left internal jugular vein, subclavian vein, and axillary vein are patent. The left brachial vein is patent. The left cephalic vein is patent. The left basilic vein is patent. The left ulnar and radial veins are patent. IMPRESSION: 1. Negative for left upper extremity deep venous thrombosis. 11/17/16 Chest Xray Portable 1 View A/P INDICATION: Weakness. EXAM: Portable chest at 7:39 PM FINDINGS: A right IJ Port-A-Cath tip projects over the SVC. The heart size and pulmonary vascularity are normal. The lungs are clear. There are no effusions or pneumothoraces. IMPRESSION: No acute abnormalities in the chest. ASSESSMENT Erin Jenkins is a 81 year old female admitted from ED 11/18 with SIRS/ sepsis attributed to UTI due to E coli. She has pancreatic cancer and is undergoing chemotherapy. She had anemia on admit with Hgb landy 6.9. She has other chronic problems. * SIRS/sepsis: Resolved. Attributed to UTI. Blood culture negative. Ecoli in urine treated with 5 days Rocephin IV * UTI due to E coli: Culture as noted. Ceftriaxone x 5 days. * Normocytic Anemia: Stool negative for occult blood. Hgb landy 6.9. Transfused 1 unit PRBC 11/18. Hgb improved to 9.3. Monitored and transfused for Hgb < 8. * Hyponatremia: Na 129 on admit, improved to 135. * Pain: Stable. Hydromorphone, acetaminophen. * Hypotension: Resolved. * BLE Edema: Furosemide had been held due to hypotension but restarted 11/20 due to BLE edema. Can probably transition to oral furosemide 11/22. NAHOMI hose. Daily weight, I&O. 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 Sono negative for DVT. Diuresis. Compression hose. * Deconditioning: PT eval and treat. * F/E/N: Diabetic diet. Port. IVF. I&O, daily weight. * Prophylaxis: Enoxaparin * Code Status: Full * Dispo: Discharge to [facility] senior care. Appt Tomorrow Dr Payton 4 pm-- she is off of chemo this week. CHRONIC ISSUES * Diabetes Mellitus Type II: Metformin * GERD: Pantoprazole * Edema: Furosemide, potassium. * JACLYN: Home CPAP. * Pancreatic Cancer: Reviewed records from oncologist. Locally advanced, unresectable cancer in the pancreatic head. T2 N1 M0. On gemcitabine and paclitaxel (Abraxane). Discharge Disposition [facility] Skilled Appt Dr Payton Tomorrow TuesdayNovember 23 at 4 pm New Medications: Magnesium Oxide (Magnesium Oxide) 400 Mg Tablet 400 MG PO DAILY #30 TAB Potassium Chloride (Klor-Con M20) 20 Meq Tab.er.prt 20 MEQ PO BID@08,17 #60 TAB Continued Medications: Furosemide (Furosemide) 40 Mg Tablet 40 MG PO BID TAB Metformin HCl (Metformin HCl ER) 500 Mg Tab.er.24 500 MG PO DAILY TAB Pantoprazole Sod (Protonix Tab) 40 Mg Tab 40 MG PO DAILY TAB Discontinued Medications: Potassium Chloride (Klor-Con M20) 20 Meq Tab.er.prt 20 MEQ PO DAILY TAB.SA Follow up Instructions Continue same medications as before Contact your doctor for questions or concerns You will be going to [facility] senior care Copies to: End of Report . Ann Marie Bacon VARNISHING UNIT TOOL SETTER November 22, 2016 09:45
[2016-11-22 11:50] VITALS: BP 131/52
--- NOTE | 2016-11-22 12:26 | NUR ---
Pt. has been accepted to [facility] skilled care. Pt. will go to [phone]/ext. [phone]. 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
--- NOTE | 2016-11-22 13:08 | NUR ---
Discharge order received. Report called to BECK Mejía at [place] [id number].
[2016-11-22] MEDS ORDERED: SODIUM CHLORIDE FLUSH 10 ML ONE (13:26)
--- NOTE | 2016-11-22 14:27 | NUR ---
Dismissed to [facility] per w/c [facility] Kalyn community assistant. Skin w/p/d. A/O x 4. Resp unlabored.
== END 2016-11-22 14:27 | DRG 872 ==
LOC: ED 21:30 → MED/SURG 23:45
PROVIDERS: ADMIT Emergency Medicine; ATTEND Emergency Medicine
DX: A41.9 Sepsis, unspecified organism (principal); N39.0 Urinary tract infection, site not specified; E87.1 Hypo-osmolality and hyponatremia; C25.0 Malignant neoplasm of head of pancreas; D64.81 Anemia due to antineoplastic chemotherapy; I89.0 Lymphedema, not elsewhere classified; E11.9 Type 2 diabetes mellitus without complications; I10 Essential (primary) hypertension; B91 Sequelae of poliomyelitis; T45.1X5A Adverse effect of antineoplastic and immunosuppressive drugs, initial encounter; Z79.899 Other long term (current) drug therapy; Z79.84 Long term (current) use of oral hypoglycemic drugs
CPT/HCPCS: 36415; 36430; 71010; 80053; 80069; 81003; 81015; 82728; 83540; 83550; 83605; 83690; 83735; 85007; 85014; 85018; 85025; 85027; 86140; 86850; 86900; 86901; 86920; 87040; 87077; 87088; 87186; 96374; 99283

== ENCOUNTER 2016-11-30 17:57 | Inpatient (IN) | payer MEDICARE, OTHER ==
[~2016-11-30] VITALS: Ht 160 cm; Wt 64.8 kg
[~2016-11-30 17:57] MED LIST changes: +MGX400T PO
[2016-11-30] MEDS ORDERED: DOCU-243 PO (18:39)
[2016-11-30] MEDS ORDERED: FURO80TA84 PO (18:39)
[2016-11-30] MEDS ORDERED: POTA-57 PO (18:42)
--- NOTE | 2016-11-30 18:54 | NUR ---
Report given to Ernestine SOLARES.
[2016-11-30 19:17] LABS: MEAN CORPUSCULAR VOLUME 91 FL (80-100); PLATELET COUNT 607 10^3uL (150-450); WHITE BLOOD COUNT 17.57 10^3uL (4.0-11.0)
[2016-11-30] MEDS ORDERED: ACETAMINOPHEN 500 MG TAB (TYLENOL) PO ONE (19:20)
--- NOTE | 2016-11-30 19:20 | NUR ---
Temp checked 100.[address] Oliveira notified.
[2016-11-30 19:23] LABS: BILIRUBIN,URINE Negative (Negative); CLARITY,URINE Clear; COLOR,URINE Yellow; GLUCOSE, URINE (UA) Negative (Negative); LEUKOCYTE ESTERASE ,URINE Negative (Negative); PH,URINE 8.5 (5.0 - 8.0); UROBILINOGEN,URINE 0.2 mg/dL (0.2-1.0)
[2016-11-30 19:25] LABS: ALBUMIN 3.4 g/dL (3.4-5.0); ANION GAP 14.2 MEQ/L (3-15); CALCULATED IONIZED CALCIUM 3.7 mg/dL (3.8-4.6)
[2016-11-30 19:37] LABS: BAND NEUTROPHILS % 0 % (0-6); EOSINOPHILS % 0 % (0-4); LYMPHOCYTES # 1.9 #; MONOCYTES # 2.7 #; MONOCYTES % 16 % (3-11); RBC MORPH NORMAL (NORMAL); SEGMENTED NEUTROPHILS % 73 % (51-67); TOTAL CELLS COUNTED 100
--- NOTE | 2016-11-30 19:37 | Diagnostic Imaging Report ---
INDICATION: Weakness. DISCUSSION: Single portable upright view of the chest was obtained, comparison 11/17/2016. Patchy opacity is now present within the medial right upper lobe, pneumonia versus artifact from overlying rib and clavicle. Recommend clinical correlation and continued follow-up. Right chest wall Vhyyga-Y-Szee is stable. Stable normal heart size. IMPRESSION: 1. Patchy opacity is present within the medial right upper lobe as discussed above, possible new pneumonia. Dictated by: Dictated on workstation # [id number]
[2016-11-30] MEDS ORDERED: VANCOMYCIN 1,000 MG in SODIUM CHLORIDE 250 ML IV ONE (19:40)
[2016-11-30] MEDS ORDERED: PIPERACILLIN/TAZOBACTAM 3.375 GM in SODIUM CHLORIDE 50 ML IV ONE (19:40)
[2016-11-30] MEDS ORDERED: POLYETHYLENE GLYCOL 17 GM (MIRALAX) PACKET PO PRN (20:20)
[2016-11-30] MEDS ORDERED: ONDANSETRON 2 MG/ML (Z0FRAN) 2 ML VIAL IV PRN (20:20)
[2016-11-30] MEDS ORDERED: ONDANSETRON 4 MG (ZOFRAN) ORAL DISSOLVE TAB PO PRN (20:20)
[2016-11-30] MEDS ORDERED: LEVOFLOXACIN 750 MG/150 ML IV 150 ML IV SCH (20:30)
[2016-11-30 20:42] VITALS: BP 147/57
[2016-11-30 20:45] VITALS: BP 147/57
--- NOTE | 2016-11-30 20:45 | NUR ---
Patient admitted to room from ED. Son with patient. Alert and oriented. Very weak. Assisted to the bathroom and almost fell. Has left arm weakness due to polio as a child and is very weak due to illness. IV infusing via port right upper chest. No complications to site. Denies pain or any discomforts. Call light within reach. Orders obtained from Dr Grayson. Patient was able to talk to via teledoc. All questions answered. Call light within reach.
--- NOTE | 2016-11-30 21:18 | History and Physical (E) ---
History & Physical PCP: Tammy Clarke MD Please note that the patient was seen via telemedicine with nursing assistance CC tired HPI Mr. Jenkins is a pleasant 81yo woman with h/o DJD s/p R LIANNE, DM2 (she says prediabetic), JACLYN on CPAP, and new diagnosis this year of pancreatic cancer with biliary stent and chemotherapy started and markers improved per her and son at the bedside. She was admitted and DC's 8 days ago to [facility] after UTI/sepsis admission. She felt fine until today with weakness, sleepy, and anorexia. Denies shortness of breath, pain, or cough. No prior PNA. Had completed prior abx and denies other ENT or GI symptoms. No other med changes. PMH As in HPI with polio neuropathy as well PSH As in HPI ALLERGIES: Please see list at end of report. HOME MEDICATIONS: Please see list at end of report. FH father of ?panc cancer at 82yo as was on certificate but would not allow surgery, mother CAD SH no tobacco, etoh, drugs. ROS 10+ systems reviewed and negative except for in HPI and below. CONSTITUTION: 25# weight loss this year. HEENT: No change in vision or hearing. No sores in mouth, sore throat. CV: No chest pain, palpitations. PULM: No cough, shortness of breath, difficulty breathing. GI: No upset stomach, nausea, vomiting, constipation, or diarrhea. No blood in stool. : No dysuria. No blood in urine. MS: No new muscle or joint aches and pains. NEURO: chronic hand pain/tingling. INTEG: No rashes, lesions, or sores. ENDO: No heat or cold intolerance. No polydipsia or polyuria. HEME/LYMPH: No easy bruising or bleeding. No swollen glands. PSYCH: No change in mood or behavior. OBJECTIVE 99.2 P 109 RR 18 97/73 and 96% RA GEN: Awake, alert, oriented, NAD HEENT: EOMI, PERRL, moist oral mucosa. CV: RRR S1 S2 normal with no murmur LUNGS: Decreased R compared to L with no wheezing or rhonchi ABD: Soft, NT/ND with normal bowel sounds INTEG: No rash. NEURO: No focal motor neuro deficit. Weight: 62.6 kg LABS WBC 17.6 Hgb 10.7 similar to before platelts 607 BMP normal except Na133 and glucose 142. LFTS ok lactate 1.8 MICRO IMAGING CXR RML infiltrated ASSESSMENT HCAP PLAN 1. HCAP with possible sepsis as P over 90 and WBC over 12K with L shift--admit to full inpatient care status with Zosyn, Levaquin, Vanco once, nebs, prn O2, IS and supportive care. Cxs as well with temp monitoring. Cautious fluid with the below and euvolemic with a liter in ED already, give once more with wt 62kg for goal of 30ml/kg. 2. Pancreating cancer immunosuppressed undergoing chemo with positive initial response. Full code confirmed again this admit. 3. JACLYN on CPAP 4. Hyponatremia with recent increased water and diuretic with 1+ LE edema. 1L NS and recheck in AM. 5. DM2 with cancer induced weight loss. Check A1C with CBGs. 6. Anemia due to malignancy, and reactive thrombocytosis Full code Allergies/Home Medications Allergies: Coded Allergies: No Known Drug Allergies (Unverified , 10/01/14) Reported Home Medications Scheduled Furosemide (Lasix) 80 MG PO DAILY IN AM (Reported) Magnesium Oxide (Magnesium Oxide) 400 MG PO DAILY Metformin HCl (Metformin HCl ER) 500 MG PO DAILY (Reported) Pantoprazole Sod (Protonix Tab) 40 MG PO DAILY (Reported) Potassium Chloride (Potassium Chloride) 20 MEQ PO BID (Reported) Scheduled PRN Docusate Sodium (Colace) 100 MG PO BID PRN PRN PRN CONSTIPATION (Reported) Discontinued Medications Furosemide (Furosemide) 40 MG PO BID (Reported) Discontinued Reason: Dose changed Potassium Chloride (Klor-Con M20) 20 MEQ PO BID@08,17 Discontinued Reason: Therapy changed Copies to: End of Report . SHARMAINE GUERRERO MD November 30, 2016 21:18
[2016-11-30] MEDS ORDERED: VANCOMYCIN 1000 MG VIAL ONE (22:04)
[2016-11-30] MEDS ORDERED: SODIUM CHLORIDE 250 ML ONE (22:04)
[2016-11-30] MEDS: ALBUTEROL/IPRATROPIUM 3MG-0.5MG/3ML (DUONEB) NEB VIAL INH SCH (23:00)
--- NOTE | 2016-12-01 | NUR ---
Awakened for vitals. C-pap placed on at HS. Patient tolerates well. Assisted to commode with one. Patient remains very weak. No cough. Remains alert and oriented. Denies any discomforts. Call light within reach.
[2016-12-01 00:25] VITALS: BP 102/37
[2016-12-01] MEDS: ALBUTEROL/IPRATROPIUM 3MG-0.5MG/3ML (DUONEB) NEB VIAL INH SCH ×4 (01:30→22:40)
[2016-12-01] MEDS ORDERED: SODIUM CHLORIDE 100 ML ONE (04:27)
[2016-12-01] MEDS ORDERED: PIPERACILLIN/TAZOBACTAM 4.5 GM (ZOSYN) VIAL IV ONE (04:27)
[2016-12-01] MEDS: PIPERACILLIN/TAZOBACTAM 4.5 GM in SODIUM CHLORIDE 100 ML IV SCH ×3 (05:50→22:31)
[2016-12-01 06:02] LABS: MEAN CORPUSCULAR HEMOGLOBIN 29.5 PG (26.0-34.0); MEAN CORPUSCULAR HGB CONC 32.4 g/dL (31.0-37.0); MEAN CORPUSCULAR VOLUME 91 FL (80-100); PLATELET COUNT 571 10^3uL (150-450); WHITE BLOOD COUNT 21.55 10^3uL (4.0-11.0)
[2016-12-01 06:22] LABS: ANION GAP 8.4 MEQ/L (3-15)
--- NOTE | 2016-12-01 06:39 | NUR ---
Patient rested at long intervals tonight. Up to commode to void twice tonight. Remains weak, but feels a little better. Color pale. No respiratory distress.Pleasant and cooperative with cares. No complications at port site. Iv antibiotics administered as ordered. Call light within reach.
[2016-12-01 06:51] LABS: ANISOCYTOSIS SLIGHT; BAND NEUTROPHILS % 3 % (0-6); EOSINOPHILS % 0 % (0-4); LYMPHOCYTES # 1.5 #; MONOCYTES # 3.2 #; MONOCYTES % 15 % (3-11); RBC MORPH SEE REFERENCE (NORMAL); SEGMENTED NEUTROPHILS % 75 % (51-67); TOTAL CELLS COUNTED 100
--- NOTE | 2016-12-01 07:30 | NUR ---
SpO2 95% on Room Air. BS clear
[2016-12-01 08:00] VITALS: BP 122/43
--- NOTE | 2016-12-01 08:30 | NUR ---
Pt alert/oriented, feels weak. Rested throughout noc. Zosyn infusing as ordered as well as NS @100ml/hr per orders in Rt PAC. Pt calls for assist appropriately.
--- NOTE | 2016-12-01 09:07 | NUR ---
MED REC COMPLETE--current med list obtained from list provided by [facility].
[2016-12-01] MEDS: PANTOPRAZOLE 40 MG (PROTONIX) TAB PO SCH (09:19)
--- NOTE | 2016-12-01 10:39 | NUR ---
NUTRITION ASSESSMENT Level 1 Patient: Erin Jenkins Age/Sex: 81/F Date Screened: 12-01-16 Weight: 138.6#/63 kg Height: 63 inches Primary Diagnosis: pneumonia Diet Order: medium diabetic Relevant labs: sodium 132, glucose 123, Hgb A1c 5.8 Food allergies: N Nutrition Assessment Criteria Age over 80: 4 points Body Mass Index (BMI) under 19: N Admission Screening Indicates Risk? 6 points Moderate/High Risk Diagnosis: 3 points TPN or PPN: N NPO or clear liquid diet: N Serum Glucose <70 or >180: N Hgb A1c >6.7: N Total: 13 points Risk Screen: __ Patient at low nutritional risk based on available data; reevaluate in 5-7 days __ Patient at moderate nutritional risk based on available data; reevaluate in 3-5 days _X_ Patient at high nutritional risk; complete Nutrition Assessment within 48 hours of admission.
--- NOTE | 2016-12-01 11:14 | NUR ---
NUTRITION ASSESSMENT Level II Patient: Erin Jenkins Age/Sex: 81/F Date Assessed: 12-01-16 ASSESSMENT Pertinent History: Patient admitted with pneumonia and screened at high nutritional risk secondary to unintentional weight loss with pancreatic cancer. PMHx includes pancreatic cancer diagnosed September 2016, prediabetes, HTN and polio. Prior to last admission (earlier this month) she was living alone at home, but has been at the [facility] since DC 8 days ago. Weight hx. includes 139# in September 2016, 148.2# 11-18-16 and 145.2# 11-22-16. She has lost ~25# this year, and has gone through one round of chemo. Meds/Nutrition: Protonix, NS Weight: 138.6#/63 kg Height: 63 inches Body Mass Index (BMI): 24.6 [place] Body Weight : 115#/52.2 kg % IBW: 120% GASTROINTESTINAL Appetite: poor, eating 25% Diet Order: medium diabetic Unintentional loss of >10 lbs. in 3 months: N Difficult to chew/swallow: N Diabetes: N Relevant Labs: sodium 132, glucose 123, Hgb A1c 5.8 Calculations for Nutritional Assessment Estimated calorie needs: 25-28 kcals/kg = 1,575-1,760 kcals Estimated protein needs: 1.2-1.4 g/kg = 75-88 g./day DIAGNOSIS 1. Nutrition Diagnosis: Inadequate intake related to anorexia as evidenced by reports of decreased appetite with pancreatic cancer/chemo and weight loss over the past few months. NUTRITIONAL INTERVENTION Goal: Patient will receive adequate nutrition to meet her needs. Plan: Recommend upgrading diet to regular instead of diabetic; pt. does not have a diabetic diagnosis, her A1c is WNL, and right now the nutritional priority needs to be increasing the appeal of food so that pt. is able to eat enough. Consider Glucerna or homemade protein shakes to increase kcals/protein while appetite remains poor. Will monitor intake for adequacy and adjust nutritional interventions as needed. MONITORING & EVALUATION _X_ Monitor patients menu selections _X_ Monitor patients food intake per nursing notes __ Monitor NPO/clear liquid days __ Monitor lab values __ Monitor I&O __ Other
[2016-12-01] MEDS ORDERED: VANCOMYCIN PHARMACY PROTOCOL IV SCH ×2 (11:20)
[2016-12-01] MEDS ORDERED: DEXTROSE 50% 25 GM/50 ML SYRINGE IV PRN (11:20)
[2016-12-01] MEDS ORDERED: DEXTROSE ORAL GEL (GLUTOSE 40%) 15 GM TUBE PO PRN (11:20)
[2016-12-01] MEDS ORDERED: GLUCAGON EMERGENCY 1 MG/KIT IM PRN (11:20)
[2016-12-01] MEDS: INSULIN LISPRO 1 UNIT/0.01 ML (HUMALOG) DOSE SC SCH ×3 (11:30→20:58)
--- NOTE | 2016-12-01 11:39 | Progress Note (E) ---
Progress Note SUBJECTIVE Admitted before midnight. Presented to ED with feeling more fatigued, chilled, and fever. CXR changes concerning for HCAP. Had been here in early November, treated for UTI, then to [facility] for skilled care. She was admitted from there. WBC in ED was 17.6. CXR showed patchiness in RUL, a new change compared to 11/17/2016. Broad-spectrum antibiotics were started for HCAP. Since admit, no further fever but was 100.9 in ED. WBC indigo further. On room air. Feels a bit better today. Discussed her findings and plan of care. OBJECTIVE Vital Signs Date Time Temp Pulse Resp B/P Pulse Ox O2 Delivery O2 Flow Rate FiO2 12/01/16 08:00 98.5 94 18 122/43 99 Room air 11/30/16 20:45 0.00 I & O 11/30/16 12/01/16 Cumulative From/Thru 19:00 07:00 11/30/16 18:03 - 12/01/16 05:27 Intake Total 400 ml 400 ml Output Total 450 ml 450 ml Balance -50 ml -50 ml GEN: Awake, interactive, oriented, NAD HEENT: EOMI, clear sclerae, mildly dry oral mucosa. CV: Regular with II/ systolic flow murmur at LSB. PULM: No audible rales/rhonchi, or wheezes. ABD: Soft, NT/ND with normal bowel sounds. EXTR: 2+ BLE and pedal edema. Left arm has 2+ edema, chronic. INTEG: Pallor. Age related changes. 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 Weight: 63 kg (62.6 kg on admit) Lab-Past 14 Days, 35 Results 11/30/16 18:35: Urine Bilirubin Negative, Urine Blood Negative, Urine Clarity Clear, Urine Collection Type Catheter, Urine Color Yellow, Urine Glucose (UA) Negative, Urine Ketones Negative, Urine Leukocyte Esterase Negative, Urine Nitrite Negative, Urine Protein Negative, Urine Specific [place] 1.015, Urine Urobilinogen 0.2, Urine pH 8.5 11/30/16 18:55: Absolute Band Neutrophils 0.0, Alanine Aminotransferase (ALT/SGPT) 37, Albumin 3.4#, Albumin/Globulin Ratio 0.944L, Alkaline Phosphatase 121, Anion Gap 14.2, Aspartate Amino Transf (AST/SGOT) 36, BUN/Creatinine Ratio 19, Band Neutrophils % 0, Basophils # (Auto) , Basophils # (Manual) 0.0, Basophils % (Manual) 0, Basophils (%) (Auto) , Blood Morphology Comment Normal, Blood Urea Nitrogen 16, Calcium Level 8.4L, Calcium/Ionized Calcium Ratio 3.7L, Calculated Osmolality 262L, Carbon Dioxide Level 27, Chloride Level 96L, Creatinine 0.85, Differential Total Cells Counted 100, Eosinophils # 0.0, Eosinophils # (Auto) , Eosinophils % (Manual) 0, Eosinophils (%) (Auto) , Estimat Glomerular Filtration Rate 77.9, Estimated GFR (Non- 64.4, Glucose Level 142#H, Hematocrit 32.40L, Hemoglobin 10.7L, Lymphocytes # 1.9, Lymphocytes # ( Auto) , Lymphocytes % (Manual) 11L, Lymphocytes (%) (Auto) , Mean Corpuscular Hemoglobin 30.0, Mean Corpuscular Hemoglobin Concent 33.0, Mean Corpuscular Volume 91, Mean Platelet Volume 9.0, Monocytes # 2.7, Monocytes # (Auto) , Monocytes % (Manual) 16H, Monocytes (%) (Auto) , Neutrophils # 12.8, Neutrophils # (Auto) , Neutrophils (%) (Auto) , Platelet Count 607#H, Potassium Level 4.4, Red Blood Count 3.57L, Red Cell Distribution Width 18.7H, Segmented Neutrophils % 73H, Sodium Level 133L, Total Bilirubin 0.5, Total Protein 7.0, White Blood Count 17.57H 11/30/16 19:10: Lactic Acid Level 1.8 12/01/16 05:35: Absolute Band Neutrophils 0.6, Anion Gap 8.4, BUN/Creatinine Ratio 18, Band Neutrophils % 3, Basophils # (Auto) , Basophils # (Manual) 0.0, Basophils % ( Manual) 0, Basophils (%) (Auto) , Blood Morphology Comment See reference, Blood Urea Nitrogen 14, Calcium Level 8.0L, Carbon Dioxide Level 27, Chloride Level 101, Creatinine 0.79, Differential Total Cells Counted 100, Eosinophils # 0.0, Eosinophils # (Auto) , Eosinophils % (Manual) 0, Eosinophils (%) (Auto) , Estimat Glomerular Filtration Rate 84.7, Estimated GFR (Non- 70.0, Glucose Level 123H, Hematocrit 29.60L, Hemoglobin 9.6L, Lymphocytes # 1.5 , Lymphocytes # (Auto) , Lymphocytes % (Manual) 7L, Lymphocytes (%) (Auto) , Mean Corpuscular Hemoglobin 29.5, Mean Corpuscular Hemoglobin Concent 32.4, Mean Corpuscular Volume 91, Mean Platelet Volume 9.0, Monocytes # 3.2, Monocytes # (Auto) , Monocytes % (Manual) 15H, Monocytes (%) (Auto) , Neutrophils # 16.2, Neutrophils # (Auto) , Neutrophils (%) (Auto) , Platelet Count 571H, Potassium Level 3.6, Red Blood Count 3.25L, Red Cell Distribution Width 18.7H, Segmented Neutrophils % 75H, Sodium Level 132L, White Blood Count 21.55H, Anisocytosis Slight, Hemoglobin A1c 5.8 MICRO 12/01 Blood culture PENDING 12/01 Sputum culture PENDING SAMPLE IMAGING 11/30/16 CHEST 1 VIEW, AP/PA ONLY* INDICATION: Weakness. DISCUSSION: Single portable upright view of the chest was obtained, comparison 11/17/2016. Patchy opacity is now present within the medial right upper lobe, pneumonia versus artifact from overlying rib and clavicle. Recommend clinical correlation and continued follow-up. Right chest wall Gerofe-O-Eysa is stable. Stable normal heart size. IMPRESSION: 1. Patchy opacity is present within the medial right upper lobe as discussed above, possible new pneumonia. REFERENCE 11/17/16 Chest Xray Portable 1 View A/P INDICATION: Weakness. EXAM: Portable chest at 7:39 PM FINDINGS: A right IJ Port-A-Cath tip projects over the SVC. The heart size and pulmonary vascularity are normal. The lungs are clear. There are no effusions or pneumothoraces. IMPRESSION: No acute abnormalities in the chest. ASSESSMENT Erin Jenkins is a 81 year old female admitted from ED 11/30 [facility]/Sepsis and acute respiratory distress attributed to HCAP. She had been hospitalized here 11/18-11/22 for UTI due to E coli and she had completed antibiotic course with ceftriaxone. She has underlying problems including pancreatic cancer, currently undergoing chemotherapy. PLAN * SIRS/sepsis: Recurrent. Previous episode due to E coli UTI. This episode attributed to HCAP. * Acute Respiratory Distress: Mild on admit. IS, oxygen protocol. * HCAP: CXR as noted. Blood culture pending. Sputum pending sample. Empiric pip- tazo, vanco. Got levofloxacin on admit. Deferred further dosing for now. * * Normocytic Anemia: Noted on prior admit with hgb landy 6.9. Transfused 1 unit PRBC 11/18. Hgb improved to 9.3 on that discharge and was 9.6 this admit. Stool was previously negative for occult blood. Monitor trend. Transfuse for Hgb < 8. * Hyponatremia: Na 133 on admit, mild. Monitor trend. * Pain: Stable. Acetaminophen. * BLE Edema: Chronic. Hold furosemide for now. * Left Arm Edema: Chronic, stable. Sono negative for DVT on previous admit. * Deconditioning: PT eval and treat. * F/E/N: Diabetic diet. Port. IVF. I&O, daily weight. * Prophylaxis: Enoxaparin * Code Status: Full * Dispo: Inpatient, expecting 3 day stay. Could then return to [facility] for further rehab. She is hoping to return home. CHRONIC ISSUES * Diabetes Mellitus Type II: Metformin, sliding scale. * GERD: Pantoprazole * Constipation: Bowel regimen. * Edema: For now, hold furosemide, potassium. * JACLYN: Home CPAP. * Pancreatic Cancer: Reviewed records from oncologist. Locally advanced, unresectable cancer in the pancreatic head. T2 N1 M0. On gemcitabine and paclitaxel (Abraxane). RAMESH HURTADO MD December 01, 2016 11:29
[2016-12-01] MEDS ORDERED: NS FLUSH 3 ML PRN IV (11:50)
[2016-12-01] MEDS ORDERED: NS FLUSH 10 ML PRN IV (11:50)
[2016-12-01] MEDS: metFORMIN 500 MG (GLUCOPHAGE) TABLET PO SCH (12:17)
--- NOTE | 2016-12-01 14:15 | NUR ---
Pt refused to work with PT this afternoon- states she is too weak today. Zosyn infusing into Rt PAC. Takes meds without difficulty. Chronic left sided weakness- post polio. She transfers to commode from bed using cane and SBA. Help needed to get BLE into bed.
[2016-12-01 15:35] VITALS: BP 99/39
--- NOTE | 2016-12-01 15:44 | NUR ---
Pt resting in bed, visitors at bedside.
[2016-12-01] MEDS: VANCOMYCIN COMPOUNDED BY PHARMACY IV SCH (17:43)
--- NOTE | 2016-12-01 17:51 | NUR ---
Pt up in chair for supper meal. IVF infusing as ordered.
[2016-12-01] MEDS: VANCOMYCIN 1250 MG in SODIUM CHLORIDE 250 ML IV SCH (17:55)
--- NOTE | 2016-12-01 18:02 | NUR ---
Vancomycin Dosing: Pharmacy Managed S: HCAP O: 81 yo female with CXR suggestive of pneumonia s/p recent hospitalization 11/17/16-11/22/16. WBC up to 21,600 with 75% neutrophils, Tmax 100.9, SCr 0.79 mg/dL, CrCl 51 mL/min; blood and sputum cultures pending. A/P: Vancomycin and Zosyn initiated empirically. Patient received vancomycin 1000 mg IV x 1 in ED. Recommend vancomycin 1250 mg IV daily to achieve therapeutic goal of 15-20 mcg/mL. Predicted trough = 16 mcg/mL. Draw trough prior to 5th overall dose (12/04/16 at 1730).
--- NOTE | 2016-12-01 19:55 | NUR ---
Miralax given in cranberry juice per pt. report of constipation. Pt. resting in recliner; watching tv; denies discomfort. Resp are even and unlabored on room air; IVF infusing at port-100 cc/hr; lower extremity edema noted; legs elevated currently. Call light and H2O within reach. Pt. is very pleasant and cooperative.
[2016-12-01] MEDS ORDERED: ALBUTEROL/IPRATROPIUM 3MG-0.5MG/3ML (DUONEB) NEB VIAL INH PRN (20:00)
[2016-12-01] MEDS: guaiFENesin ER 600 MG (MUCINEX) TAB PO SCH (20:28)
--- NOTE | 2016-12-01 20:58 | NUR ---
Accucheck is 165 this evening; sliding scale insulin not required. Pt. now resting in bed; watching tv.
[2016-12-02 00:08] VITALS: BP 102/40
--- NOTE | 2016-12-02 01:00 | NUR ---
Pt. resting quietly with CPAP applied; appears to be in no distress; Zosyn continues to infuse at 25 cc/hr without difficulty; call light and H2O within reach.
--- NOTE | 2016-12-02 04:15 | NUR ---
IVF replenished; pt. back to bed from bathroom. CPap off at this time; call light within reach.
[2016-12-02] MEDS: ALBUTEROL/IPRATROPIUM 3MG-0.5MG/3ML (DUONEB) NEB VIAL INH SCH (05:00)
[2016-12-02] MEDS: PIPERACILLIN/TAZOBACTAM 4.5 GM in SODIUM CHLORIDE 100 ML IV SCH ×3 (05:47→22:03)
[2016-12-02 06:08] LABS: MEAN CORPUSCULAR HEMOGLOBIN 29.3 PG (26.0-34.0); MEAN CORPUSCULAR VOLUME 92 FL (80-100); MEAN PLATELET VOLUME 8.9 FL (6.0-9.5); PLATELET COUNT 549 10^3uL (150-450); WHITE BLOOD COUNT 12.92 10^3uL (4.0-11.0)
--- NOTE | 2016-12-02 06:15 | NUR ---
Accucheck this morning is 99; sliding scale insulin not required. Zosyn infusing without difficulty. Pt. slept in intervals; called for assist PRN; denies nausea/pain. Pt. very pleasant and cooperative.
[2016-12-02] MEDS: INSULIN LISPRO 1 UNIT/0.01 ML (HUMALOG) DOSE SC SCH ×4 (06:17→21:00)
[2016-12-02 06:19] LABS: BAND NEUTROPHILS % 1 % (0-6); EOSINOPHILS % 1 % (0-4); LYMPHOCYTES # 1.8 #; MONOCYTES # 1.2 #; MONOCYTES % 10 % (3-11); RBC MORPH NORMAL (NORMAL); SEGMENTED NEUTROPHILS % 74 % (51-67); TOTAL CELLS COUNTED 100
[2016-12-02 06:40] LABS: ALBUMIN 2.6 g/dL (3.4-5.0)
[2016-12-02 07:45] VITALS: BP 111/41
--- NOTE | 2016-12-02 08:26 | Progress Note (E) ---
Progress Note SUBJECTIVE Low grade temp elevation, Tmax 99.5 yesterday afternoon. 96.3 this AM. BP a little low at times. Remains on room air. WBC improved from peak 21.55 yesterday to 12.92 today. Hgb stable, 10.3. Chemistry stable. Blood cultures remain negative. Considered possibility that this is a viral illness... plan to check resp PCR panel. On exam, awake, interactive, pleasant. Says she feels better. Acknowledges she feels a bit weak still. Encouraged her to ambulate because instead of going back to skilled she would really like to go home tomorrow. OBJECTIVE Vital Signs Date Time Temp Pulse Resp B/P Pulse Ox O2 Delivery O2 Flow Rate FiO2 12/02/16 00:08 96.3 78 20 102/40 95 Room air 11/30/16 20:45 0.00 I & O 12/01/16 12/02/16 Cumulative From/Thru 19:00 07:00 11/30/16 18:03 - 12/02/16 06:09 Intake Total 1159 ml 2269 ml 3828 ml Output Total 1100 ml 1950 ml 3500 ml Balance 59 ml 319 ml 328 ml GEN: Awake, interactive, oriented, NAD HEENT: EOMI, clear sclerae, mildly dry oral mucosa. CV: Regular with II/ systolic flow murmur at LSB. PULM: Intermittent rales in right base. ABD: Soft, NT/ND with normal bowel sounds. EXTR: 2+ BLE and pedal edema. Left arm has 2+ edema, chronic. INTEG: Pallor. Age related changes. 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 Weight: 63.6 kg (62.6 kg on admit) Lab-Past 14 Days, 35 Results 11/30/16 18:35: Urine Bilirubin Negative, Urine Blood Negative, Urine Clarity Clear, Urine Collection Type Catheter, Urine Color Yellow, Urine Glucose (UA) Negative, Urine Ketones Negative, Urine Leukocyte Esterase Negative, Urine Nitrite Negative, Urine Protein Negative, Urine Specific [place] 1.015, Urine Urobilinogen 0.2, Urine pH 8.5 11/30/16 18:55: Absolute Band Neutrophils 0.0, Alanine Aminotransferase (ALT/SGPT) 37, Albumin 3.4#, Albumin/Globulin Ratio 0.944L, Alkaline Phosphatase 121, Anion Gap 14.2, Aspartate Amino Transf (AST/SGOT) 36, BUN/Creatinine Ratio 19, Band Neutrophils % 0, Basophils # (Auto) , Basophils # (Manual) 0.0, Basophils % (Manual) 0, Basophils (%) (Auto) , Blood Morphology Comment Normal, Blood Urea Nitrogen 16, Calcium Level 8.4L, Calcium/Ionized Calcium Ratio 3.7L, Calculated Osmolality 262L, Carbon Dioxide Level 27, Chloride Level 96L, Creatinine 0.85, Differential Total Cells Counted 100, Eosinophils # 0.0, Eosinophils # (Auto) , Eosinophils % (Manual) 0, Eosinophils (%) (Auto) , Estimat Glomerular Filtration Rate 77.9, Estimated GFR (Non- 64.4, Glucose Level 142#H, Hematocrit 32.40L, Hemoglobin 10.7L, Lymphocytes # 1.9, Lymphocytes # ( Auto) , Lymphocytes % (Manual) 11L, Lymphocytes (%) (Auto) , Mean Corpuscular Hemoglobin 30.0, Mean Corpuscular Hemoglobin Concent 33.0, Mean Corpuscular Volume 91, Mean Platelet Volume 9.0, Monocytes # 2.7, Monocytes # (Auto) , Monocytes % (Manual) 16H, Monocytes (%) (Auto) , Neutrophils # 12.8, Neutrophils # (Auto) , Neutrophils (%) (Auto) , Platelet Count 607#H, Potassium Level 4.4, Red Blood Count 3.57L, Red Cell Distribution Width 18.7H, Segmented Neutrophils % 73H, Sodium Level 133L, Total Bilirubin 0.5, Total Protein 7.0, White Blood Count 17.57H 11/30/16 19:10: Lactic Acid Level 1.8 12/01/16 05:35: Absolute Band Neutrophils 0.6, Anion Gap 8.4, BUN/Creatinine Ratio 18, Band Neutrophils % 3, Basophils # (Auto) , Basophils # (Manual) 0.0, Basophils % ( Manual) 0, Basophils (%) (Auto) , Blood Morphology Comment See reference, Blood Urea Nitrogen 14, Calcium Level 8.0L, Carbon Dioxide Level 27, Chloride Level 101, Creatinine 0.79, Differential Total Cells Counted 100, Eosinophils # 0.0, Eosinophils # (Auto) , Eosinophils % (Manual) 0, Eosinophils (%) (Auto) , Estimat Glomerular Filtration Rate 84.7, Estimated GFR (Non- 70.0, Glucose Level 123H, Hematocrit 29.60L, Hemoglobin 9.6L, Lymphocytes # 1.5 , Lymphocytes # (Auto) , Lymphocytes % (Manual) 7L, Lymphocytes (%) (Auto) , Mean Corpuscular Hemoglobin 29.5, Mean Corpuscular Hemoglobin Concent 32.4, Mean Corpuscular Volume 91, Mean Platelet Volume 9.0, Monocytes # 3.2, Monocytes # (Auto) , Monocytes % (Manual) 15H, Monocytes (%) (Auto) , Neutrophils # 16.2, Neutrophils # (Auto) , Neutrophils (%) (Auto) , Platelet Count 571H, Potassium Level 3.6, Red Blood Count 3.25L, Red Cell Distribution Width 18.7H, Segmented Neutrophils % 75H, Sodium Level 132L, White Blood Count 21.55H, Anisocytosis Slight, Hemoglobin A1c 5.8 12/02/16 05:45: Absolute Band Neutrophils 0.1, Albumin 2.6#L, Anion Gap , Band Neutrophils % 1, Basophils # (Auto) , Basophils # (Manual) 0.0, Basophils % (Manual) 0, Basophils (%) (Auto) , Blood Morphology Comment Normal, Blood Urea Nitrogen 12, Calcium Level 8.2L, Carbon Dioxide Level 25, Chloride Level 107, Creatinine 0.74 , Differential Total Cells Counted 100, Eosinophils # 0.1, Eosinophils # (Auto) , Eosinophils % (Manual) 1, Eosinophils (%) (Auto) , Estimat Glomerular Filtration Rate 91.4, Estimated GFR (Non- 75.5, Glucose Level 110, Hematocrit 32.20L, Hemoglobin 10.3L, Lymphocytes # 1.8, Lymphocytes # (Auto ) , Lymphocytes % (Manual) 14L, Lymphocytes (%) (Auto) , Mean Corpuscular Hemoglobin 29.3, Mean Corpuscular Hemoglobin Concent 32.0, Mean Corpuscular Volume 92, Mean Platelet Volume 8.9, Monocytes # 1.2, Monocytes # (Auto) , Monocytes % (Manual) 10, Monocytes (%) (Auto) , Neutrophils # 9.6, Neutrophils # (Auto) , Neutrophils (%) (Auto) , Phosphorus Level 4.0, Platelet Count 549H, Potassium Level 3.6, Red Blood Count 3.51L, Red Cell Distribution Width 19.2H, Segmented Neutrophils % 74H, Sodium Level 137, White Blood Count 12.92H MICRO 12/01 Blood culture Negative to date. 12/01 Sputum culture PENDING SAMPLE IMAGING 11/30/16 CHEST 1 VIEW, AP/PA ONLY* INDICATION: Weakness. DISCUSSION: Single portable upright view of the chest was obtained, comparison 11/17/2016. Patchy opacity is now present within the medial right upper lobe, pneumonia versus artifact from overlying rib and clavicle. Recommend clinical correlation and continued follow-up. Right chest wall Uhhmro-K-Nihs is stable. Stable normal heart size. IMPRESSION: 1. Patchy opacity is present within the medial right upper lobe as discussed above, possible new pneumonia. REFERENCE 11/17/16 Chest Xray Portable 1 View A/P INDICATION: Weakness. EXAM: Portable chest at 7:39 PM FINDINGS: A right IJ Port-A-Cath tip projects over the SVC. The heart size and pulmonary vascularity are normal. The lungs are clear. There are no effusions or pneumothoraces. IMPRESSION: No acute abnormalities in the chest. ASSESSMENT Erin Jenkins is a 81 year old female admitted from ED 11/30 where she presented from senior care for SIRS/Sepsis and acute respiratory distress attributed to HCAP. She had been hospitalized here 11/18-11/22 for UTI due to E coli and she had completed antibiotic course with ceftriaxone. She has underlying problems including pancreatic cancer, currently undergoing chemotherapy. PLAN * SIRS/sepsis: Recurrent. Previous episode due to E coli UTI. This episode attributed to HCAP. * Acute Respiratory Distress: Mild on admit. IS, oxygen protocol. * HCAP: CXR as noted. Blood culture pending. Sputum pending sample. Possiblility that this is a viral illness... check respiratory PCR panel. Empiric pip-tazo, vanco. Got levofloxacin on admit. Deferred further dosing for now. * Normocytic Anemia: Noted on prior admit with hgb landy 6.9. Transfused 1 unit PRBC 11/18. Hgb improved to 9.3 on that discharge and was 9.6 this admit. Stool was previously negative for occult blood. Monitor trend. Transfuse for Hgb < 8. * Hyponatremia: Resolved. Na 133 on admit, mild. Monitor trend. * Pain: Stable. Acetaminophen. * BLE Edema: Chronic. Hold furosemide initially but resumed 12/02 at lower dose. Resumed K at lower dose. * Left Arm Edema: Chronic, stable. Sono negative for DVT on previous admit. * Deconditioning: PT eval and treat. * F/E/N: Diabetic diet. Port. IVF. I&O, daily weight. * Prophylaxis: Enoxaparin * Code Status: Full * Dispo: Inpatient, expecting 3 day stay. Could then return to [facility] for further rehab. She is hoping to return home. CHRONIC ISSUES * Diabetes Mellitus Type II: Metformin, sliding scale. * GERD: Pantoprazole * Constipation: Bowel regimen. * Edema: For now, hold furosemide, potassium. * JACLYN: Home CPAP. * Pancreatic Cancer: Reviewed records from oncologist. Locally advanced, unresectable cancer in the pancreatic head. T2 N1 M0. On gemcitabine and paclitaxel (Abraxane). RAMESH HURTADO MD December 02, 2016 08:18
--- NOTE | 2016-12-02 08:30 | NUR ---
Pt sitting up in chair at this time. Denies pain, SOA, or nausea. IVF and Zosyn infusing with no difficulties. Skin warm, dry, intact. Resprs nonlabored, even on RA. Call light within reach. Denies needs.
[2016-12-02] MEDS: guaiFENesin ER 600 MG (MUCINEX) TAB PO SCH ×2 (09:38→20:59)
[2016-12-02] MEDS: PANTOPRAZOLE 40 MG (PROTONIX) TAB PO SCH (09:38)
[2016-12-02] MEDS: FUROSEMIDE 40 MG (LASIX) TAB PO SCH (09:38)
[2016-12-02] MEDS: POTASSIUM CHLORIDE ER 20 MEQ TABLET PO SCH (09:38)
[2016-12-02] MEDS: MAGNESIUM OXIDE 400 MG (MAG-OX) TAB PO SCH (09:38)
[2016-12-02] MEDS: metFORMIN 500 MG (GLUCOPHAGE) TABLET PO SCH (09:38)
--- NOTE | 2016-12-02 14:58 | NUR ---
MULTIDISCIPLINARY MTG/DR. HURTADO: Pt. was admitted for possible pneumonia and is being treated as such. Also checking PCR. Pt. also has pancreatic cancer and has missed some chemo treatments due to being ill. Pt. was in skilled care at [facility] prior to being admitted. Pt. would like to go home at discharge. PT to evaluate Pt. and provide recommendations as to whether Pt. would benefit from additional skilled care or if she could go home with home health and PT. Pt to possibly discharge tomorrow.
[2016-12-02 15:31] VITALS: BP 107/43
--- NOTE | 2016-12-02 16:04 | Physical Therapy Evaluation(E) ---
Plan of Care STG: Plan-Treatment Functional: Independent with HEP, Amb Safe w/ AD on level STG Time Frame: 2 Days Goals Discussed/Agreed: Yes Plan: Functional Strengthening, Gait & Transfer Training, Neuro Re-Education, Progressive Ambulation, Transfer Training, Therapy Excercise Discharge Recommendations: Home Independently (home health services recommended. The patient would benefit from further PT services to address weakness and decreased activity tolerance. She has voiced wanting to return home versus returning to [facility] and believes she is functioning at a high enough level she would be able to return home at this time.) Aware of Dx and Prognosis: Yes Aware of Risk & Benefit: Yes To be Seen: Daily Tuesday-Tuesday Initial Evaluation Service Date/Time 12/02/16, 15:48 Primary Diagnosis: (1) UTI (urinary tract infection) ICD Code: N39.0 (2) Pneumonia ICD Code: J18.9 (3) Pancreatic cancer ICD Code: C25.9 (4) Sepsis ICD Code: A41.9 Treatment Diagnosis: (1) Pneumonia ICD Code: J18.9 (2) UTI (urinary tract infection) ICD Code: N39.0 (3) Pancreatic cancer ICD Code: C25.9 Onset Date: 11/30/2016 Start of Care Date: December 02, 2016 Resuscitation Status: Full Code Precaution/Isolation: Standard Precautions Fall Level: Low Risk 25-50 Initial Assessment Reason for Rehab: Increase Mobility, Increase Strength, Increase Balance, Increase Transfers Medical History: Cancer, Hypertension, Post Polio Syndrome, Other Pain Location/Comment Patient denies pain. Prior Level of Function The patient lives at home alone. Ambulates around kitchen/home with AWW if she needs to transport items, otherwise uses a cane. Independent with ADLs including showers, raised toilet set, bath bench. Rehabilitation Potential: Good (Patient is motivated to improve her functional status. ) Assistive Device: FWW Distance Walked in Feet 300 feet with cane Assist: Supervision Required Gait Limitations: Fatigue ROM/Strength Hip Mobility: Right Hip Strength: 4 Left Hip Strength: 4- Knee Flexion Mobility: Right Knee Flexion Strength: 4+ Left Knee Flexion Strength: 4 Knee Extension Mobility: Right Knee Extension Strength: 4 Left Knee Extension Strength: 4 Ankle Mobility: Right Ankle Strength: 4 Left Ankle Strength: 4 Assessment/Goals Initial Transfer Assessment Rolling: Not Assessed/NA Sit-Supine: Not Assessed/NA Sitting Edge of Bed: Modified [place] (sitting in her chair ) Supine-Sit: Not Assessed/NA Sit-Stand from Bed: Modified [place] Stand-Sit: Modified [place] Ambulation: Modified [place] Distance Walked in Feet 300 feet with cane. Comment Patient was fatigued after standing/ambulating 5 minutes. She requested to rest and declined any further activity. The patient would benefit from additional therapy services to improve her activity tolerance and strength. Coding Time In: 1448 Time Out: 1512 Total Minutes: 24 Charges: 94708 Eval< 20 min RIVERA FRANKLIN PT December 02, 2016 16:04
[2016-12-02] MEDS: ACETAMINOPHEN 325 MG TAB (TYLENOL) PO PRN ×2 (16:34→21:00)
--- NOTE | 2016-12-02 16:35 | NUR ---
PRN Tylenol given at this time for c/o hip pain. Pt states it didn't hurt sitting down but hurts when she stands. States "maybe I sat on it wrong!". Denies other needs.
[2016-12-02] MEDS: VANCOMYCIN COMPOUNDED BY PHARMACY IV SCH (18:00)
--- NOTE | 2016-12-02 18:45 | NUR ---
Uneventful shift. Pt sitting up in chair at this time. Denies pain, SOA, or nausea. IVF infusing with no difficulties. Skin warm, dry, intact. Resprs nonlabored, even on RA. Call light within reach. Denies needs.
[2016-12-02] MEDS: VANCOMYCIN 1250 MG in SODIUM CHLORIDE 250 ML IV SCH (18:57)
--- NOTE | 2016-12-02 21:00 | NUR ---
Tylenol 650 mg PO given for hip discomfort; pt. currently resting in bed; watching tv; very pleasant and cooperative. Call light and H2O within reach.
--- NOTE | 2016-12-02 21:30 | NUR ---
Accucheck this evening is 137; sliding scale insulin not required.
[2016-12-02 23:50] VITALS: BP 109/54
[2016-12-03] MEDS: ACETAMINOPHEN 325 MG TAB (TYLENOL) PO PRN (02:09)
[2016-12-03] MEDS: PIPERACILLIN/TAZOBACTAM 4.5 GM in SODIUM CHLORIDE 100 ML IV SCH ×2 (05:49→14:00)
--- NOTE | 2016-12-03 06:25 | NUR ---
Accucheck is 127 this morning; sliding scale insulin not required. Zosyn currently infusing at 25 cc/hr; pt. resting in bed; CPap off currently. Pt. has called for stand by assist when ambulating to and fro bathroom; utilizes quad cane. Pt. is very pleasant and cooperative. Call light and H2O within reach.
[2016-12-03] MEDS: INSULIN LISPRO 1 UNIT/0.01 ML (HUMALOG) DOSE SC SCH ×2 (06:47→11:30)
[2016-12-03 08:00] VITALS: BP 101/52
[2016-12-03] MEDS: metFORMIN 500 MG (GLUCOPHAGE) TABLET PO SCH (08:48)
[2016-12-03] MEDS: guaiFENesin ER 600 MG (MUCINEX) TAB PO SCH (08:48)
[2016-12-03] MEDS: MAGNESIUM OXIDE 400 MG (MAG-OX) TAB PO SCH (08:48)
[2016-12-03] MEDS: POTASSIUM CHLORIDE ER 20 MEQ TABLET PO SCH (08:48)
[2016-12-03] MEDS: PANTOPRAZOLE 40 MG (PROTONIX) TAB PO SCH (08:48)
[2016-12-03] MEDS: FUROSEMIDE 40 MG (LASIX) TAB PO SCH (08:49)
--- NOTE | 2016-12-03 10:49 | NUR ---
Visited with Pt. while she was working with PT. Pt. reported she was scheduled to be discharged from [facility] on . She would prefer to discharge home. She already has home health services through [facility] and [facility] has given her exercises to do at home. She would prefer not to have PT through [facility] because she knows someone that also receives chemo and it makes them hurt all the time. SW and PT explained she could try the PT and if she no longer wanted it she could request it be stopped. Pt. reported [facility] has also completed two home assessments of her home. SW is anticipating discharge today.
--- NOTE | 2016-12-03 11:15 | PT Daily Note Inpatient (E) ---
PT Daily Treatment Service Date/Time 12/03/16, 11:09 Medical Diagnosis: (1) UTI (urinary tract infection) ICD Code: N39.0 (2) Pneumonia ICD Code: J18.9 (3) Pancreatic cancer ICD Code: C25.9 (4) Sepsis ICD Code: A41.9 Physical Therapy: (1) Pneumonia ICD Code: J18.9 (2) UTI (urinary tract infection) ICD Code: N39.0 (3) Pancreatic cancer ICD Code: C25.9 Precaution/Isolation: Standard Precautions Resuscitation Status: Full Code Fall Level: Low Risk 25-50 Subjective Pt sitting up in recliner. Hopes to go home today. Pt agrees to therapy. Oxygen Delivery: Room air O2 liters/minute: 0 Treatments Sit, Stand, Supine: Sitting, Long Sitting Extremity: Both Lower Extremity Assistance: AROM Repetition: 1 x 20 Exercise: AP, QS, Heel Slides, Hip Abduction, SLR, LAQ, Hip Flexion Transfers Sit-Stand from bed: Complete Ida (from recliner) Stand-Sit: Complete Ida Gait Ambulation: Supervision or setup Distance Walked: 300 feet Assistive Device: Single Point Cane Gait Description: Normal:No Sig. Deviation Gait Training: Limitations: Fatigue Education/Plan Assessment Pt very steady with gait and transfers. Safety Awareness: Intact Response to Treatment: Improving Plan Patient will be seen: Daily Tuesday-Tuesday Coding Time In: 10:41 Time Out: 11:11 Total Minutes: 30 Charges: 24816 Exercise Therp 15 Luis Enrique Love PTA December 03, 2016 11:15
[2016-12-03] MEDS ORDERED: CEFD300C PO (13:12)
[2016-12-03] MEDS ORDERED: FRSM40T PO (13:12)
[2016-12-03] MEDS ORDERED: KCL20TCR PO (13:12)
[2016-12-03] MEDS ORDERED: AC325T PO (13:12)
--- NOTE | 2016-12-03 13:18 | Discharge Instructions (E) ---
Discharge Instructions Instructions * You were evaluated and treated for pneumonia that developed while you were in custodial care. Blood culture did not grown any bacteria. Your test for viral infections was negative. You improved with IV antibiotic and will complete therapy at discharge with cefdinir. Take all antibiotic as prescribed. Do not skip doses even if you feel better. * Have a follow-up chest x-ray in 2 weeks at your primary care doctor's office. * Your dose of potassium and furosemide have been lowered on this discharge. Take as directed. Have your blood chemistry checked at your doctor's office before your next appointment and discuss then if your dose should be adjusted further. * Seek medical attention if you develop worse shortness of breath, cough, fever , chills, or for any other concerns. Activity Instructions As tolerated. Doctor's Appointment Follow-up with your primary care doctor in 3-5 days. Keep your appointments with oncology as scheduled. Discharge Diet: RAMESH Villanueva MD December 03, 2016 13:18
--- NOTE | 2016-12-03 13:50 | NUR ---
Reviewed new medication (Cefdinir) and medication changes with patient. Provided discharge medication list and patient information handout. Patient voiced no questions or concerns.
--- NOTE | 2016-12-03 13:59 | NUR ---
Discharge instructions given to pt. Voices understanding. States that her son will pick her up after 3pm.
--- NOTE | 2016-12-03 14:06 | NUR ---
Port-a-cath deaccessed at this time. Pt sitting in chair awaiting ride.
[2016-12-03 15:18] VITALS: BP 99/52
--- NOTE | 2016-12-03 15:32 | NUR ---
Pt discharged to home via w/c, accompanied by staff and family member.
--- NOTE | 2016-12-03 18:09 | Discharge Summary (E) ---
Discharge Summary (E) Admit Date/Time November 30, 2016 at 20:06 Discharge Date/Time December 03, 2016 at 15:31 Admitting Provider Larry Grayson MD Primary Care Provider Tammy Clarke MD Attending Provider Larry Grayson MD Consulting Provider History and Present Illness Erin Jenkins is a 81 year old female admitted from ED 11/30 where [facility] for SIRS/Sepsis and acute respiratory distress attributed to HCAP. She had been hospitalized here 11/18-11/22 for UTI due to E coli and she had completed antibiotic course with ceftriaxone. She has underlying problems including pancreatic cancer, currently undergoing chemotherapy. She improved fairly rapidly. Noted that her CXR showed only modest changes. She remained on room air throughout her hospitalization. Full hospital details are as follows. She had planned to leave [facility] 12/03 and today she felt well enough to return home as planned, so she was discharged home with [facility]. Hospital Course and Treatment * SIRS/sepsis: Resolved. Recurrent episode. Previous episode due to E coli UTI. This episode attributed to HCAP. * Acute Respiratory Distress: Resolved. Mild on admit. IS, oxygen protocol. * HCAP: Resolving. CXR as noted. Blood culture negative to date. No sputum sample for culture. Possibility that this is a viral illness but respiratory PCR panel was negative. Empiric pip-tazo, vanco. Got levofloxacin on admit but deferred further dosing of that. On discharge, cefdinir. * Normocytic Anemia: Noted on prior admit with hgb landy 6.9. Transfused 1 unit PRBC 11/18. Hgb improved to 9.3 on that discharge and was 9.6 this admit. Stool was previously negative for occult blood. * Hyponatremia: Resolved. Na 133 on admit, 137 on discharge. Monitor trend. * Pain: Stable. Acetaminophen. * BLE Edema: Chronic. Held furosemide initially but resumed 12/02 at lower dose. Resumed K at lower dose. Continued these at discharge. * Left Arm Edema: Chronic, stable. Sono negative for DVT on previous admit. * Deconditioning: PT eval and treat. * F/E/N: Diabetic diet. Port. IVF. I&O, daily weight. * Prophylaxis: Enoxaparin * Code Status: Full * Dispo: Inpatient. Discharged home with [facility] CHRONIC ISSUES * Diabetes Mellitus Type II: Metformin, sliding scale. * GERD: Pantoprazole * Constipation: Bowel regimen. * Edema: Furosemide, potassium. * JACLYN: Home CPAP. * Pancreatic Cancer: Reviewed records from oncologist. Locally advanced, unresectable cancer in the pancreatic head. T2 N1 M0. On gemcitabine and paclitaxel (Abraxane). Discharge Physicial Exam General Vital Signs Date Time Temp Pulse Resp B/P Pulse Ox O2 Delivery O2 Flow Rate FiO2 12/03/16 15:18 98.4 91 18 99/52 Room air 12/03/16 08:00 98 11/30/16 20:45 0.00 GEN: Awake, interactive, oriented, NAD HEENT: EOMI, clear sclerae, mildly dry oral mucosa. CV: Regular with II/ systolic flow murmur at LSB. PULM: Intermittent rales in right base. ABD: Soft, NT/ND with normal bowel sounds. EXTR: 2+ BLE and pedal edema. Left arm has 3+ edema, chronic. INTEG: Pallor. Age related changes. 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 Weight: 64.8 kg (62.6 kg on admit) Laboratory/Radiology Data Laboratory Results-14 Days 11/30/16 18:35: Urine Bilirubin Negative, Urine Blood Negative, Urine Clarity Clear, Urine Collection Type Catheter, Urine Color Yellow, Urine Glucose (UA) Negative, Urine Ketones Negative, Urine Leukocyte Esterase Negative, Urine Nitrite Negative, Urine Protein Negative, Urine Specific [place] 1.015, Urine Urobilinogen 0.2, Urine pH 8.5 11/30/16 18:55: Absolute Band Neutrophils 0.0, Alanine Aminotransferase (ALT/SGPT) 37, Albumin 3.4#, Albumin/Globulin Ratio 0.944L, Alkaline Phosphatase 121, Anion Gap 14.2, Aspartate Amino Transf (AST/SGOT) 36, BUN/Creatinine Ratio 19, Band Neutrophils % 0, Basophils # (Auto) , Basophils # (Manual) 0.0, Basophils % (Manual) 0, Basophils (%) (Auto) , Blood Morphology Comment Normal, Blood Urea Nitrogen 16, Calcium Level 8.4L, Calcium/Ionized Calcium Ratio 3.7L, Calculated Osmolality 262L, Carbon Dioxide Level 27, Chloride Level 96L, Creatinine 0.85, Differential Total Cells Counted 100, Eosinophils # 0.0, Eosinophils # (Auto) , Eosinophils % (Manual) 0, Eosinophils (%) (Auto) , Estimat Glomerular Filtration Rate 77.9, Estimated GFR (Non- 64.4, Glucose Level 142#H, Hematocrit 32.40L, Hemoglobin 10.7L, Lymphocytes # 1.9, Lymphocytes # ( Auto) , Lymphocytes % (Manual) 11L, Lymphocytes (%) (Auto) , Mean Corpuscular Hemoglobin 30.0, Mean Corpuscular Hemoglobin Concent 33.0, Mean Corpuscular Volume 91, Mean Platelet Volume 9.0, Monocytes # 2.7, Monocytes # (Auto) , Monocytes % (Manual) 16H, Monocytes (%) (Auto) , Neutrophils # 12.8, Neutrophils # (Auto) , Neutrophils (%) (Auto) , Platelet Count 607#H, Potassium Level 4.4, Red Blood Count 3.57L, Red Cell Distribution Width 18.7H, Segmented Neutrophils % 73H, Sodium Level 133L, Total Bilirubin 0.5, Total Protein 7.0, White Blood Count 17.57H 11/30/16 19:10: Lactic Acid Level 1.8 12/01/16 05:35: Absolute Band Neutrophils 0.6, Anion Gap 8.4, BUN/Creatinine Ratio 18, Band Neutrophils % 3, Basophils # (Auto) , Basophils # (Manual) 0.0, Basophils % ( Manual) 0, Basophils (%) (Auto) , Blood Morphology Comment See reference, Blood Urea Nitrogen 14, Calcium Level 8.0L, Carbon Dioxide Level 27, Chloride Level 101, Creatinine 0.79, Differential Total Cells Counted 100, Eosinophils # 0.0, Eosinophils # (Auto) , Eosinophils % (Manual) 0, Eosinophils (%) (Auto) , Estimat Glomerular Filtration Rate 84.7, Estimated GFR (Non- 70.0, Glucose Level 123H, Hematocrit 29.60L, Hemoglobin 9.6L, Lymphocytes # 1.5 , Lymphocytes # (Auto) , Lymphocytes % (Manual) 7L, Lymphocytes (%) (Auto) , Mean Corpuscular Hemoglobin 29.5, Mean Corpuscular Hemoglobin Concent 32.4, Mean Corpuscular Volume 91, Mean Platelet Volume 9.0, Monocytes # 3.2, Monocytes # (Auto) , Monocytes % (Manual) 15H, Monocytes (%) (Auto) , Neutrophils # 16.2, Neutrophils # (Auto) , Neutrophils (%) (Auto) , Platelet Count 571H, Potassium Level 3.6, Red Blood Count 3.25L, Red Cell Distribution Width 18.7H, Segmented Neutrophils % 75H, Sodium Level 132L, White Blood Count 21.55H, Anisocytosis Slight, Hemoglobin A1c 5.8 12/02/16 05:45: Absolute Band Neutrophils 0.1, Albumin 2.6#L, Anion Gap , Band Neutrophils % 1, Basophils # (Auto) , Basophils # (Manual) 0.0, Basophils % (Manual) 0, Basophils (%) (Auto) , Blood Morphology Comment Normal, Blood Urea Nitrogen 12, Calcium Level 8.2L, Carbon Dioxide Level 25, Chloride Level 107, Creatinine 0.74 , Differential Total Cells Counted 100, Eosinophils # 0.1, Eosinophils # (Auto) , Eosinophils % (Manual) 1, Eosinophils (%) (Auto) , Estimat Glomerular Filtration Rate 91.4, Estimated GFR (Non- 75.5, Glucose Level 110, Hematocrit 32.20L, Hemoglobin 10.3L, Lymphocytes # 1.8, Lymphocytes # (Auto ) , Lymphocytes % (Manual) 14L, Lymphocytes (%) (Auto) , Mean Corpuscular Hemoglobin 29.3, Mean Corpuscular Hemoglobin Concent 32.0, Mean Corpuscular Volume 92, Mean Platelet Volume 8.9, Monocytes # 1.2, Monocytes # (Auto) , Monocytes % (Manual) 10, Monocytes (%) (Auto) , Neutrophils # 9.6, Neutrophils # (Auto) , Neutrophils (%) (Auto) , Phosphorus Level 4.0, Platelet Count 549H, Potassium Level 3.6, Red Blood Count 3.51L, Red Cell Distribution Width 19.2H, Segmented Neutrophils % 74H, Sodium Level 137, White Blood Count 12.92H 12/02/16 13:04: Adenovirus (PCR) Negative, Bordetella parapertussis DNA (PCR) Negative, Chlamydophila pneumoniae (PCR) Negative, Coronavirus Type 229E (PCR) Negative, Coronavirus Type HKU1 (PCR) Negative, Coronavirus Type NL63 (PCR) Negative, Coronavirus Type OC43 (PCR) Negative, Enterovirus/Rhinovirus (PCR) Negative, Human Metapneumovirus (PCR) Negative, Influenza Type A (H1) (PCR) Negative, Influenza Virus Type B (PCR) Negative, Mycoplasma pneumoniae (PCR) Negative, Parainfluenza Type 1 (PCR) Negative, Parainfluenza Type 2 (PCR) Negative, Parainfluenza Type 3 (PCR) Negative, Parainfluenza Type 4 (PCR) Negative, Respiratory Syncytial Virus (PCR) Negative MICRO 12/01 Blood culture Negative to date. 12/01 Sputum culture PENDING SAMPLE IMAGING 11/30/16 CHEST 1 VIEW, AP/PA ONLY* INDICATION: Weakness. DISCUSSION: Single portable upright view of the chest was obtained, comparison 11/17/2016. Patchy opacity is now present within the medial right upper lobe, pneumonia versus artifact from overlying rib and clavicle. Recommend clinical correlation and continued follow-up. Right chest wall [id number] is stable. Stable normal heart size. IMPRESSION: 1. Patchy opacity is present within the medial right upper lobe as discussed above, possible new pneumonia. REFERENCE 11/17/16 Chest Xray Portable 1 View A/P INDICATION: Weakness. EXAM: Portable chest at 7:39 PM FINDINGS: A right IJ Port-A-Cath tip projects over the SVC. The heart size and pulmonary vascularity are normal. The lungs are clear. There are no effusions or pneumothoraces. IMPRESSION: No acute abnormalities in the chest. Discharge Disposition Discharged home with [facility]. Instructions * You were evaluated and treated for pneumonia that developed while you were in [facility] care. Blood culture did not grown any bacteria. Your test for viral infections was negative. You improved with IV antibiotic and will complete therapy at discharge with cefdinir. Take all antibiotic as prescribed. Do not skip doses even if you feel better. * Have a follow-up chest x-ray in 2 weeks at your primary care doctor's office. * Your dose of potassium and furosemide have been lowered on this discharge. Take as directed. Have your blood chemistry checked at your doctor's office before your next appointment and discuss then if your dose should be adjusted further. * Seek medical attention if you develop worse shortness of breath, cough, fever , chills, or for any other concerns. Activity Instructions As tolerated. Appointments Follow-up with your primary care doctor in 3-5 days. Keep your appointments with oncology as scheduled. Discharge Diet: Regular Discharge Medications New Medications: Cefdinir (Cefdinir) 300 Mg Capsule 300 MG PO BID Infection #7 Ref 0 CAP Acetaminophen (Acetaminophen) 325 Mg Tablet 650 MG PO Q6H PRN PAIN #0 Ref 0 TAB Furosemide (Lasix) 40 Mg Tab 40 MG PO DAILY #15 Ref 0 TAB Potassium Chloride (Klor-Con M20) 20 Meq Tab.er.prt 20 MEQ PO DAILY@0800 #15 Ref 0 TAB Continued Medications: Docusate Sodium (Colace) 100 Mg Cap 100 MG PO BID PRN PRN CONSTIPATION Ref 0 CAP Magnesium Oxide (Magnesium Oxide) 400 Mg Tablet 400 MG PO DAILY #30 TAB Metformin HCl (Metformin HCl ER) 500 Mg Tab.er.24 500 MG PO DAILY TAB Pantoprazole Sod (Protonix Tab) 40 Mg Tab 40 MG PO DAILY TAB Discontinued Medications: Furosemide (Lasix) 80 Mg Tablet 80 MG PO DAILY TAB Potassium Chloride (Potassium Chloride) 20 Meq Tablet.er 20 MEQ PO BID WITH MEALS TAB Follow up Follow up Referrals: Home Health Service - 12/03/16 with [facility] New Orders: CXR (CHEST PA/LAT (2 VIEW)* - Within 2 weeks RENAL PROFILE - 12/06/16 Discharge Diagnosis See list above. Problems: Copies to: Additional Provider: BRAEDEN NIXON MD End of Report . RAMESH HURTADO MD December 03, 2016 18:09
--- NOTE | 2016-12-07 08:21 | Physical Therapy Evaluation(E) ---
Discharge Summary Service Date/Time 12/07/16, 08:20 Primary Diagnosis: (1) UTI (urinary tract infection) ICD Code: N39.0 (2) Pneumonia ICD Code: J18.9 (3) Pancreatic cancer ICD Code: C25.9 (4) Sepsis ICD Code: A41.9 Treatment Diagnosis: (1) Pneumonia ICD Code: J18.9 (2) UTI (urinary tract infection) ICD Code: N39.0 (3) Pancreatic cancer ICD Code: C25.9 Onset Date: 11/30/2016 Start of Service Date: December 02, 2016 Summary of Progress Summary Comment The patient actively participated in all therapy sessions. She was discharged from facility to home on 12/03/2016 and will be receiving home health services. Distance Walked in Feet 300 feet with cane. Assistive Device: Single Point Cane Assist: Supervision Required Gait Description: Normal:No Sig. Deviation Gait Limitations: Fatigue Plan of Care Goals and Status STG: Plan-Treatment Functional: Independent with HEP, Amb Safe w/ AD on level Goal Status at Discharge: Goal Met Discharge Recommendations: Home Independently (with home health services to improve strength, activity tolerance. ) Service Recommendations: DC Services (PT services discharged at this time secondary to patient being discharged from facility. ) RIVERA FRANKLIN PT December 07, 2016 08:21
== END 2016-12-03 15:31 | disposition home health service (06) | DRG 871 ==
LOC: ED 17:59 → MED/SURG 20:06
PROVIDERS: ADMIT Hospitalist; ATTEND Hospitalist
DX: A41.9 Sepsis, unspecified organism (principal); J18.9 Pneumonia, unspecified organism; C25.0 Malignant neoplasm of head of pancreas; E87.1 Hypo-osmolality and hyponatremia; D64.9 Anemia, unspecified; R60.0 Localized edema; E11.9 Type 2 diabetes mellitus without complications; G47.33 Obstructive sleep apnea (adult) (pediatric); K21.9 Gastro-esophageal reflux disease without esophagitis; Z79.899 Other long term (current) drug therapy; Z79.84 Long term (current) use of oral hypoglycemic drugs
CPT/HCPCS: 36415; 51701; 71010; 80048; 80053; 80069; 81003; 83036; 83605; 85025; 87040; 87486; 87581; 87633; 87798; 94640; 94760; 96361; 96365; 99283; 99284

== ENCOUNTER → 2016-12-06 | Outpatient (REF) | payer MEDICARE, OTHER ==
[~2016-12-06] MED LIST changes: +AC325T PO; +CEFD300C PO; +DOCU-243 PO; +FRSM40T PO; +FURO80TA84 PO; +POTA-57 PO
[2016-12-06 14:17] LABS: MEAN CORPUSCULAR HEMOGLOBIN 29.7 PG (26.0-34.0); MEAN CORPUSCULAR HGB CONC 32.5 g/dL (31.0-37.0); MEAN CORPUSCULAR VOLUME 91 FL (80-100); MEAN PLATELET VOLUME 9.3 FL (6.0-9.5); PLATELET COUNT 539 10^3uL (150-450); WHITE BLOOD COUNT 11.28 10^3uL (4.0-11.0)
[2016-12-06 14:35] LABS: ALBUMIN 3.4 g/dL (3.4-5.0); CALCULATED IONIZED CALCIUM 4.2 mg/dL (3.8-4.6); MAGNESIUM* 2.1 mg/dL (1.6-2.3); TOTAL PROTEIN 6.6 g/dL (6.4-8.5)
[2016-12-06 15:06] LABS: SEGMENTED NEUTROPHILS % 53 % (51-67)
[2016-12-06 15:07] LABS: BAND NEUTROPHILS % 1 % (0-6); EOSINOPHILS % 1 % (0-4); LYMPHOCYTES # 3.5 #; MONOCYTES # 1.1 #; MONOCYTES % 10 % (3-11); RBC MORPH NORMAL (NORMAL); TOTAL CELLS COUNTED 100
== END ==
LOC: LAB 15:12
PROVIDERS: ATTEND Internal Medicine
DX: K86.89 Other specified diseases of pancreas (principal); C25.0 Malignant neoplasm of head of pancreas
CPT/HCPCS: 36415; 80053; 80076; 82248; 83615; 83735; 84100; 85007; 85027